=== PATIENT | female | born 1950 | race Two or more races ===

== ENCOUNTER 2019-06-06 22:40 | Emergency (ER) | payer MEDICARE ==
[~2019-06-06] VITALS: Ht 160 cm; Wt 90.7 kg
[~2019-06-06 22:40] MED LIST: ALBUAER3 IN; FAM20T PO; FURO40TA4 PO; LACT10SO3 PO; LEVO137T3 PO; RIFA550T PO; SPIR25TA88 PO; TRAM50TA2 PO
[2019-06-07] MEDS ORDERED: SODIUM CHLORIDE 0.9% 1,000 ML IV ONE (01:00)
[2019-06-07] MEDS ORDERED: ONDANSETRON HCL 4 MG/2 ML VIAL IV ONE (01:00)
[2019-06-07 01:10] LABS: Basophils # (auto) 0 uL; Basophils % (auto) 1.3 % (0.0-2.0); Eosinophils # (auto) 0 uL; Eosinophils % (auto) 1.6 % (0.0-7.0); Hematocrit 27.1 % (36.0-46.0); Hemoglobin 9.2 g/dL (12.2-16.2); Lymphocytes # (auto) 0.3 uL; Mean Corpuscular Hemoglobin 29.7 pg (28.0-32.0); Mean Corpuscular Hgb Conc. 33.9 g/dL (32.0-36.0); Mean Corpuscular Volume 87.7 fL (80.0-100.0); Monocytes # (auto) 0.2 uL; Monocytes % (auto) 6.6 % (0.0-12.0); Neutrophils # (auto) 2.5 uL; Neutrophils % (auto) 79.5 % (37.0-80.0); Platelet Count (auto) 67 10^3/uL (140-450); Red Blood Cells 3.09 10^6/uL (4.0-5.20); Red Cell Distribution Width 17.1 % (11.8-14.3); White Blood Cell 3.1 10^3/uL (4.4-10.8)
[2019-06-07 01:26] LABS: Albumin 2.6 g/dL (3.4-5.0); BUN/Creatinine Ratio 12.3; Calcium 7.7 mg/dL (8.5-10.1); Potassium 3.4 mmol/L (3.5-5.1)
[2019-06-07 01:31] LABS: Bilirubin, Total 0.9 mg/dL (0.2-1.0); Total Protein 7.4 g/dL (6.4-8.2)
[2019-06-07] MEDS ORDERED: ALBUTEROL SULF 2.5 MG/0.5ML(0.5%) NEB SOLN NEB ONE ×2 (02:15→06:45)
[2019-06-07] MEDS ORDERED: IPRATROPIUM BROM 0.5 MG/2.5ML INH SOL NEB ONE ×2 (02:15→06:45)
[2019-06-07 03:09] LABS: INR 1.14 (0.9-1.15); Partial Thromboplastin Time 28.3 sec (23.64-32.05)
[2019-06-07 07:00] VITALS: BP 118/63
[2019-06-07] MEDS ORDERED: IPRATROPIUM BROM 0.5 MG/2.5ML INH SOL ONE (07:01)
[2019-06-07] MEDS ORDERED: ALBUTEROL SULF 2.5 MG/0.5ML(0.5%) NEB SOLN ONE (07:01)
== END 2019-06-07 07:34 | disposition home or self-care (01) ==
LOC: EDUNIT# 22:40 → EDBD 22:40 → ER 22:40
DX: J45.909 Unspecified asthma, uncomplicated (principal); J01.00 Acute maxillary sinusitis, unspecified; I12.9 Hypertensive chronic kidney disease with stage 1 through stage 4 chronic kidney disease, or unspecified chronic kidney disease; N18.9 Chronic kidney disease, unspecified; Z90.710 Acquired absence of both cervix and uterus; Z88.0 Allergy status to penicillin; Z79.899 Other long term (current) drug therapy
CPT/HCPCS: 36415; 71250; 74176; 80053; 82150; 83605; 83690; 83880; 84484; 85025; 85610; 85730; 94640; 96374; 99284; J2405; J7030; J7611; J7644

== ENCOUNTER → 2019-06-09 | Outpatient (CLI) | payer MEDICARE ==
--- NOTE | 2019-06-09 15:36 | NUR ---
PT IN ULTRASOUND FOR A PARACENTESIS BY DR LEONARD. VS 127/75-88-16-97%. 1552: 128/71-77-18-98%. 1600: FINISHED WITH PROCEDURE. 2800 ML OF ASCITES FLUID REMOVED. PT TOLERATED PROCEDURE WELL.
== END | disposition home or self-care (01) ==
LOC: XYW 15:21
PROVIDERS: ATTEND Internal Medicine
DX: R18.8 Other ascites (principal); K74.69 Other cirrhosis of liver; K75.81 Nonalcoholic steatohepatitis (NASH); E03.9 Hypothyroidism, unspecified; G20 Parkinson's disease; Z88.5 Allergy status to narcotic agent; Z88.1 Allergy status to other antibiotic agents; Z88.0 Allergy status to penicillin; Z88.2 Allergy status to sulfonamides; Z79.899 Other long term (current) drug therapy; Z98.51 Tubal ligation status; Z90.710 Acquired absence of both cervix and uterus; Z98.890 Other specified postprocedural states
CPT/HCPCS: 36415; 49083; 80053; 82105; 84439; 84443; 85025; 85610; 85730; 86704; 86706; 86708; 86803; 87340; C1729; 10022; 76942

== ENCOUNTER → 2019-06-09 | Outpatient (CLI) | payer MEDICARE ==
[2019-06-09 12:12] LABS: Basophils # (auto) 0 uL; Basophils % (auto) 1.3 % (0.0-2.0); Eosinophils # (auto) 0.1 uL; Eosinophils % (auto) 4.4 % (0.0-7.0); Hematocrit 27.9 % (36.0-46.0); Hemoglobin 9.4 g/dL (12.2-16.2); Lymphocytes # (auto) 0.6 uL; Lymphocytes % (auto) 21.7 % (10.0-50.0); Mean Corpuscular Hemoglobin 29.6 pg (28.0-32.0); Mean Corpuscular Hgb Conc. 33.8 g/dL (32.0-36.0); Mean Corpuscular Volume 87.6 fL (80.0-100.0); Monocytes # (auto) 0.2 uL; Monocytes % (auto) 6.6 % (0.0-12.0); Neutrophils # (auto) 1.8 uL; Nucleated Red Blood Cells % 0.1 %; Platelet Count (auto) 66 10^3/uL (140-450); Red Blood Cells 3.18 10^6/uL (4.0-5.20); Red Cell Distribution Width 17.4 % (11.8-14.3); White Blood Cell 2.7 10^3/uL (4.4-10.8)
[2019-06-09 12:26] LABS: INR 1.14 (0.9-1.15); Partial Thromboplastin Time 28.6 sec (23.64-32.05)
[2019-06-09 13:36] LABS: Potassium 3.5 mmol/L (3.5-5.1)
[2019-06-09 13:44] LABS: Albumin 2.8 g/dL (3.4-5.0); BUN/Creatinine Ratio 9.6; Bilirubin, Total 0.8 mg/dL (0.2-1.0); Calcium 7.7 mg/dL (8.5-10.1); Total Protein 7.4 g/dL (6.4-8.2)
[2019-06-11 09:35] LABS: Hepatitis B Surface Antibody Negative
[2019-06-11 10:09] LABS: Hepatitis A Total Antibody Positive
[2019-06-11 11:08] LABS: Hepatitis B Core Total AB Negative; Hepatitis B Surface Antigen Negative (Negative); Hepatitis C Antibody Negative (Negative)
== END | disposition home or self-care (01) ==
LOC: LAB 11:25
PROVIDERS: ATTEND Internal Medicine
DX: K75.81 Nonalcoholic steatohepatitis (NASH) (principal); E03.9 Hypothyroidism, unspecified; J40 Bronchitis, not specified as acute or chronic
CPT/HCPCS: 36415; 80053; 82105; 84439; 84443; 85025; 85610; 85730; 86704; 86706; 86708; 86803; 87340

== ENCOUNTER 2019-06-19 20:00 | Emergency (ER) | payer MEDICARE ==
[~2019-06-19] VITALS: Ht 149.9 cm; Wt 81.2 kg
[2019-06-20 09:57] VITALS: BP 106/59
== END 2019-06-20 10:26 | disposition home or self-care (01) ==
LOC: ER 20:00
DX: K74.60 Unspecified cirrhosis of liver (principal); I12.9 Hypertensive chronic kidney disease with stage 1 through stage 4 chronic kidney disease, or unspecified chronic kidney disease; I50.9 Heart failure, unspecified; N18.9 Chronic kidney disease, unspecified; J44.9 Chronic obstructive pulmonary disease, unspecified; I48.91 Unspecified atrial fibrillation; Z90.710 Acquired absence of both cervix and uterus; Z88.0 Allergy status to penicillin; Z88.1 Allergy status to other antibiotic agents; Z88.6 Allergy status to analgesic agent

== ENCOUNTER 2019-09-06 11:43 | Emergency (ER) | payer MEDICARE ==
[~2019-09-06] VITALS: Ht 154.9 cm; Wt 71.7 kg
[~2019-09-06 11:43] MED LIST changes: +SPIR25TA8 PO; -SPIR25TA88 PO; -TRAM50TA2 PO
[2019-09-06 14:22] VITALS: BP 150/82
[2019-09-06] MEDS ORDERED: traMADol HCL 50 MG TAB PO ONE (14:30)
== END 2019-09-06 16:09 | disposition home or self-care (01) ==
LOC: ER 11:43 → EDBD 11:43 → ER 16:09
DX: S93.402A Sprain of unspecified ligament of left ankle, initial encounter (principal); I48.91 Unspecified atrial fibrillation; J45.909 Unspecified asthma, uncomplicated; I13.0 Hypertensive heart and chronic kidney disease with heart failure and stage 1 through stage 4 chronic kidney disease, or unspecified chronic kidney disease; N18.9 Chronic kidney disease, unspecified; I50.9 Heart failure, unspecified; E07.9 Disorder of thyroid, unspecified; J44.9 Chronic obstructive pulmonary disease, unspecified; Z88.5 Allergy status to narcotic agent; Z88.0 Allergy status to penicillin; Z88.1 Allergy status to other antibiotic agents; Z88.2 Allergy status to sulfonamides; Z79.899 Other long term (current) drug therapy; X58.XXXA Exposure to other specified factors, initial encounter; Y93.89 Activity, other specified; Y92.89 Other specified places as the place of occurrence of the external cause; Y99.8 Other external cause status
CPT/HCPCS: 73610; 73630

== ENCOUNTER 2019-11-12 16:54 | Inpatient (IN) | payer MEDICARE ==
[~2019-11-12] VITALS: Ht 157.5 cm; Wt 78.8 kg
[~2019-11-12 16:54] MED LIST changes: -FAM20T PO; +FAMO20TA10 PO
[2019-11-12 18:19] LABS: Basophils # (auto) 0 10 ^3/uL (0-0.2); Basophils % (auto) 1.3 % (0.0-2.0); Eosinophils # (auto) 0.2 10 ^3/uL (0-0.8); Eosinophils % (auto) 6.1 % (0.0-7.0); Hematocrit 34.1 % (36.0-46.0); Hemoglobin 11.5 g/dL (12.2-16.2); Lymphocytes # (auto) 0.7 10 ^3/uL (0.4-5.4); Lymphocytes % (auto) 19.7 % (10.0-50.0); Mean Corpuscular Hemoglobin 30.5 pg (28.0-32.0); Mean Corpuscular Hgb Conc. 33.7 g/dL (32.0-36.0); Mean Corpuscular Volume 90.5 fL (80.0-100.0); Monocytes # (auto) 0.2 10 ^3/uL (0-1.3); Monocytes % (auto) 6.1 % (0.0-12.0); Neutrophils # (auto) 2.4 10 ^3/uL (1.6-8.6); Neutrophils % (auto) 66.8 % (37.0-80.0); Nucleated Red Blood Cells % 0.1 %; Platelet Count (auto) 69 10^3/uL (140-450); Red Blood Cells 3.76 10^6/uL (4.0-5.20); Red Cell Distribution Width 16.1 % (11.8-14.3); White Blood Cell 3.6 10^3/uL (4.4-10.8)
[2019-11-12 18:28] LABS: Albumin 3.1 g/dL (3.4-5.0); Potassium 3.1 mmol/L (3.5-5.1)
[2019-11-12 18:30] LABS: BUN/Creatinine Ratio 13.9
[2019-11-12 18:35] LABS: Bilirubin, Total 0.8 mg/dL (0.2-1.0); Total Protein 7.5 g/dL (6.4-8.2)
[2019-11-12 19:42] LABS: Urine Bacteria NONE SEEN /hpf (None Seen); Urine Blood Negative /uL (Negative); Urine Mucus FEW (None Seen); Urine Specific Gravity 1.027 (1.001-1.035); Urine WBC 2 /hpf (0 - 5)
[2019-11-12 20:01] LABS: INR 1.09 (0.9-1.15); Partial Thromboplastin Time 27.4 sec (23.64-32.05)
[2019-11-12] MEDS ORDERED: POTASSIUM EFFERVESENT TAB 25 MEQ GT ONE (20:45)
[2019-11-12] MEDS ORDERED: NITROGLYCERIN 0.4 MG SL TAB SL PRN (23:00)
[2019-11-12] MEDS ORDERED: TEMAZEPAM 15 MG CAP PO PRN (23:00)
[2019-11-12] MEDS ORDERED: ONDANSETRON HCL 4 MG/2 ML VIAL IV PRN (23:00)
[2019-11-12] MEDS ORDERED: MORPHINE SULF INJ 2 MG/ML SYRINGE 1ML IV PRN (23:00)
[2019-11-12 23:32] LABS: CRP High Sensitivity 0.2 mg/dL (< 0.3); Magnesium 2.2 mg/dL (1.6-2.6)
--- NOTE | 2019-11-13 00:29 | NUR ---
[facility] unit SBAR not received. Patient oriented to ROXANNA DE LA CRUZ, RN primary RN, unit, room, bed, and unit policies regarding patient care and visiting hours. Patient now on continuous telemetry monitoring,tele box #11. Patient weighed by bedscale and encouraged to call if they need something. Safety measures in place bed in lowest position, side rails up x2, and call light within reach. All questions and concerns addressed, patient verbalized understanding.
[2019-11-13] MEDS ORDERED: FUROSEMIDE 40 MG/4 ML VIAL IV ONE (01:15)
[2019-11-13] MEDS ORDERED: LEVOTHYROXINE SODIUM 50 MCG TAB PO ONE (01:15)
[2019-11-13 01:53] VITALS: BP 139/83
--- NOTE | 2019-11-13 03:57 | NUR ---
Paging hospitalist. Patient complaining pain 9/10 to right side of ribs and abdomen. Patient allergic to codeine, and morphine. Patient requesting tramadol. Awaiting orders. Will continue to monitor every hour and as needed.
[2019-11-13 05:00] VITALS: BP 106/53
[2019-11-13] MEDS ORDERED: FUROSEMIDE 20 MG/2 ML VIAL IV SCH (06:00)
[2019-11-13 06:21] LABS: Basophils # (auto) 0 10 ^3/uL (0-0.2); Eosinophils # (auto) 0.2 10 ^3/uL (0-0.8); Hemoglobin 9.7 g/dL (12.2-16.2); Lymphocytes # (auto) 0.6 10 ^3/uL (0.4-5.4); Monocytes # (auto) 0.2 10 ^3/uL (0-1.3); Neutrophils # (auto) 1.9 10 ^3/uL (1.6-8.6); White Blood Cell 2.9 10^3/uL (4.4-10.8)
[2019-11-13 06:23] LABS: Basophils % (auto) 1.4 % (0.0-2.0); Eosinophils % (auto) 6.3 % (0.0-7.0); Hematocrit 27.6 % (36.0-46.0); Lymphocytes % (auto) 19.7 % (10.0-50.0); Mean Corpuscular Hemoglobin 31.6 pg (28.0-32.0); Mean Corpuscular Hgb Conc. 35.4 g/dL (32.0-36.0); Mean Corpuscular Volume 89.3 fL (80.0-100.0); Monocytes % (auto) 7.6 % (0.0-12.0); Nucleated Red Blood Cells % 0.1 %; Platelet Count (auto) 55 10^3/uL (140-450); Red Blood Cells 3.09 10^6/uL (4.0-5.20); Red Cell Distribution Width 15.7 % (11.8-14.3)
[2019-11-13] MEDS: traMADol HCL 50 MG TAB PO PRN ×2 (06:23→15:57)
[2019-11-13 06:37] LABS: Albumin 2.5 g/dL (3.4-5.0); BUN/Creatinine Ratio 14.1; Calcium 7.4 mg/dL (8.5-10.1)
[2019-11-13 06:39] LABS: Bilirubin, Total 0.7 mg/dL (0.2-1.0); Total Protein 6.2 g/dL (6.4-8.2)
[2019-11-13 06:45] LABS: Potassium 2.9 mmol/L (3.5-5.1)
[2019-11-13] MEDS ORDERED: LEVOTHYROXINE SODIUM 112 MCG TAB PO SCH (07:00)
[2019-11-13] MEDS ORDERED: LEVOTHYROXINE SODIUM 25 MCG TAB PO SCH (07:00)
--- NOTE | 2019-11-13 07:29 | NUR ---
Patient has critical K+ 2.9, paging hospitalist to notify.
[2019-11-13] MEDS ORDERED: POTASSIUM CHL 20 Meq TABLET PO ONE (07:45)
--- NOTE | 2019-11-13 07:45 | NUR ---
Opening Shift Note Assumed care of patient, awake, alert, and oriented. No S/S of distress/SOB or pain. Bed in lowest/locked position, bed rails up x2, call light within reach. Instructed on POC and to call for assist PRN. Will continue to monitor for changes Q1hr and PRN.
--- NOTE | 2019-11-13 07:46 | NUR ---
Respiratory note: PT AWAKE, AND ALERT. NO RESPIRATORY DISTRESS NOTED. SPO2 98% ON RA, HR 67, RR 18, BS I&E WHEEZES BILATERALLY. DUE TO PT RESPIRATORY ASSESSMENT, WELL EXTENSIVE HISTORY OF ASTHMA, COPD, AND PRN MEDNEB TX TAKEN AT HOME OF ALBUTEROL, WILL RECOMMEND TO DR THAT PT ORDERED ALBUTEROL (180MCG) MDI TID. RN MADE AWARE. WILL CONTINUE TO MONITOR PT.
[2019-11-13 08:45] VITALS: BP 128/52
[2019-11-13] MEDS ORDERED: ASPirin 81 mg TAB PO SCH (10:00)
[2019-11-13] MEDS ORDERED: ASCORBIC ACID 1,000 MG TAB PO SCH (10:00)
[2019-11-13] MEDS: LACTULOSE 20Gm/30ML SOLN PO SCH (10:00)
[2019-11-13] MEDS ORDERED: ZINC SULFATE 220mg CAP or TAB PO SCH (10:00)
[2019-11-13] MEDS ORDERED: FUROSEMIDE 40 MG TAB PO SCH (10:00)
[2019-11-13] MEDS ORDERED: SPIRONOLACTONE 25 MG TAB PO SCH (10:00)
[2019-11-13] MEDS ORDERED: ENOXAPARIN SOD 40 MG/0.4 ML SYRINGE SC SCH (10:00)
[2019-11-13] MEDS: FAMOTIDINE 20 MG TAB PO SCH (10:24)
[2019-11-13] MEDS: CHOLECALCIFEROL (VITD3) 1,000UNIT=25mCg TAB PO SCH (10:25)
[2019-11-13] MEDS: rifAXIMin 550 MG TAB PO SCH ×2 (10:53→21:30)
[2019-11-13] MEDS: POTASSIUM CHL 20 Meq TABLET PO SCH ×2 (11:45→14:20)
[2019-11-13] MEDS ORDERED: IOHEXOL 350 MG/ML 100ML IJ ONE (14:10)
[2019-11-13] MEDS: ALBUTEROL SULF HFA 90MCG INH 200DOSE IN SCH ×2 (14:21→21:32)
--- NOTE | 2019-11-13 15:10 | NUR ---
REPORT REPORT GIVEN TO MAGDALENE JUAN. PATIENT BEING TRANSFERRED TO ROOM 246B
--- NOTE | 2019-11-13 15:10 | NUR ---
TRANSFER PATIENT TRANSFERRED FROM 240B TO 246B. NO S/S OF DISTRESS, SOB OR PAIN NOTED AT DEPARTURE
--- NOTE | 2019-11-13 15:15 | NUR ---
RECEIVED PT TRANSFER FROM ROOM 240B VIA WHEELCHAIR, PT IS AWAKE AND ALERT, NO SIGNS OF DISTRESS AT THIS TIME, WILL CONTINUE TO MONITOR.
--- NOTE | 2019-11-13 15:25 | NUR ---
PT SEEN BY DR. CRAVEN.
--- NOTE | 2019-11-13 15:36 | NUR ---
PT IS OFF UNIT FOR CT ANGIOGRAM.
[2019-11-13 16:56] VITALS: BP 118/69
--- NOTE | 2019-11-13 17:33 | NUR ---
SPOKE WITH TORIBIO IN ULTRASOUND, SHE SAID THERE IS NOT ENOUGH FLUID TO DRAIN FOR PARACENTESIS.
[2019-11-13] MEDS ORDERED: FUROSEMIDE 40 MG/4 ML VIAL IV SCH (18:00)
--- NOTE | 2019-11-13 18:53 | NUR ---
RT NOTE PT WAS SEEN BY RT FOR PRN HHN TX. PT TOLERATES WELL VIA MASK. NO ADVERSE REACTION NOTED .CONT ORDERED Addendum: 11/13/19 at 1932 by Camilla Robledo RT Amended: Links added.
[2019-11-13] MEDS: IPRATROPIUM BROM 0.5 MG/2.5ML INH SOL NEB PRN (19:08)
[2019-11-13] MEDS: ALBUTEROL SULF 2.5 MG/0.5ML(0.5%) NEB SOLN NEB PRN (19:09)
--- NOTE | 2019-11-13 19:30 | NUR ---
Opening Shift Note Assumed care of patient, awake and alert. No S/S of distress/SOB or pain. Instructed on POC and to call for assist PRN, will continue to monitor for changes Q1hr and PRN. bed in low position and call light within reach. fall precautions in place. informed patient to call for assistance when getting up patient verbalized understanding. bed alarm on
[2019-11-13 19:50] VITALS: BP 118/69
[2019-11-13 22:00] VITALS: BP 117/84
--- NOTE | 2019-11-13 22:10 | NUR ---
RT NOTE RT TO SEE PATIENT FOR MDI ADMINISTRATION. RN KATJA ALREADY SAW THE PATIENT AND CLEARED THE EMAR. PT TOLERATES TX WELL. CONT ORDERED
[2019-11-14] MEDS: traMADol HCL 50 MG TAB PO PRN ×3 (00:06→22:08)
--- NOTE | 2019-11-14 00:06 | NUR ---
pain 6/10 to abd aching for 2days. patient medicated.
--- NOTE | 2019-11-14 00:46 | NUR ---
patient requesting breathing treatment oxygen saturation 96% via room air. heart rate 57, rr 17 bilateral chest rise and fall. RT paged for breathing treatment.
--- NOTE | 2019-11-14 00:57 | NUR ---
RT NOTE PT WAS SEEN BY RT FOR HHN TX. PT TOLERATES WELL VIA MASK. NO ADVERSE REACTION NOTED. CONT ORDERED Addendum: 11/14/19 at 0110 by Camilla Robledo RT Amended: Links added.
--- NOTE | 2019-11-14 01:06 | NUR ---
pain 0/10
[2019-11-14] MEDS: IPRATROPIUM BROM 0.5 MG/2.5ML INH SOL NEB PRN (01:07)
[2019-11-14] MEDS: ALBUTEROL SULF 2.5 MG/0.5ML(0.5%) NEB SOLN NEB PRN (01:07)
[2019-11-14 04:57] VITALS: BP 104/64
[2019-11-14] MEDS: LEVOTHYROXINE SODIUM 100 MCG TAB PO SCH (05:49)
[2019-11-14] MEDS: LEVOTHYROXINE SODIUM 50 MCG TAB PO SCH (05:49)
[2019-11-14] MEDS: ALBUTEROL SULF HFA 90MCG INH 200DOSE IN SCH ×3 (05:50→22:11)
[2019-11-14 06:15] LABS: INR 1.14 (0.9-1.15)
--- NOTE | 2019-11-14 06:30 | NUR ---
Respiratory note: PT SEEM FOR MDI ADMINISTRATION, WAS ADMINISTER AT 05:55 PER RN CHARTING. PT STATES SHE SELF ADMINISTERED. SPO2 97% ON RA HR 72 RR 16 BREATH SOUNDS ARE CLEAR/DIMINISHED T/O. PT AND RN AWARE TO HAVE RT PAGED IF NEEDED.
--- NOTE | 2019-11-14 06:34 | NUR ---
patient rounds patient is in bed watching tv denies sob distress or pain. Iv is patent/asymptomatic. call light within reach bed in low position, and fall precautions in place. patient informed to call for assistance. patient verbalized understanding.
--- NOTE | 2019-11-14 07:15 | NUR ---
report given to dayshift rn. patient denies sob distress or pain
[2019-11-14 08:00] VITALS: BP 99/67
[2019-11-14] MEDS: LACTULOSE 20Gm/30ML SOLN PO SCH (09:48)
[2019-11-14] MEDS: FUROSEMIDE 40 MG/4 ML VIAL IV SCH (09:48)
[2019-11-14] MEDS: FAMOTIDINE 20 MG TAB PO SCH (09:49)
[2019-11-14] MEDS: SPIRONOLACTONE 25 MG TAB PO SCH (09:49)
[2019-11-14] MEDS: rifAXIMin 550 MG TAB PO SCH ×2 (09:49→22:08)
[2019-11-14] MEDS: CHOLECALCIFEROL (VITD3) 1,000UNIT=25mCg TAB PO SCH (09:49)
--- NOTE | 2019-11-14 10:23 | NUR ---
DR CRAVEN ON UNIT REGARDING PATIENT
[2019-11-14 12:00] VITALS: BP 153/61
[2019-11-14] MEDS: LIDOCAINE 5% TOPICAL PATCH TOP SCH (12:08)
--- NOTE | 2019-11-14 12:20 | NUR ---
DR Reny LAMAS BEDSIDE WITH PATIENT DISCUSSING PLAN OF CARE
--- NOTE | 2019-11-14 14:21 | NUR ---
Respiratory note: RT AT BEDSIDE FOR PT SELF ADMINISTRATION OF 180MCG ALBUTEROL INHALER. NO ADVERSE REACTION NOTED. HR 62 RR 16 SPO2 96% ON RA BREATH SOUNDS ARE FAINT EXPIRATORY WHEEZES. PT AND RN AWARE TO HAVE RT PAGED IFF NEEDED.
[2019-11-14 16:50] VITALS: BP 94/66
--- NOTE | 2019-11-14 19:25 | NUR ---
Opening Shift Note Assumed care of patient, awake and alert. No S/S of distress/SOB or pain. Bed in lowest locked position, side rails up x2, call light within reach, bed alarm on. Patient aware to call for assistance before ambulating, patient verbalized understanding. Instructed on POC and to call for assist PRN, will continue to monitor for changes Q1hr and PRN.
[2019-11-14 22:00] VITALS: BP 104/53
--- NOTE | 2019-11-15 00:08 | NUR ---
Ordered Lidocaine patch removed from below right breast as per MD Yun's orders. Patient tolerated well. Will continue to monitor.
[2019-11-15 05:45] VITALS: BP 93/48
--- NOTE | 2019-11-15 06:42 | NUR ---
Patient lying in bed, awake and alert. No s/s of distress. Call light within reach. Will endorse care to dayshift RN.
[2019-11-15] MEDS: LEVOTHYROXINE SODIUM 50 MCG TAB PO SCH (06:58)
[2019-11-15] MEDS: LEVOTHYROXINE SODIUM 100 MCG TAB PO SCH (06:58)
[2019-11-15] MEDS: traMADol HCL 50 MG TAB PO PRN (06:59)
[2019-11-15] MEDS: ALBUTEROL SULF HFA 90MCG INH 200DOSE IN SCH ×3 (07:00→21:40)
--- NOTE | 2019-11-15 07:00 | NUR ---
Respiratory note: MDI GIVEN BY RT.HR 66, RR 14, SPO2 95% ON RA, BS CLEAR. NO SIGNS OR SYMPTOMS OF RESPIRATORY DISTRESS NOTED. NO SIGNS OR SYMPTOMS OF RESPIRATORY DISTRESS NOTED AT THIS TIME.
[2019-11-15 08:00] VITALS: BP 102/57
--- NOTE | 2019-11-15 08:25 | NUR ---
DR Reny LAMAS BEDSIDE WITH PATIENT DISCUSSING PLAN OF CARE
[2019-11-15 08:53] VITALS: BP 102/57
[2019-11-15] MEDS: CHOLECALCIFEROL (VITD3) 1,000UNIT=25mCg TAB PO SCH (10:03)
[2019-11-15] MEDS: FAMOTIDINE 20 MG TAB PO SCH (10:03)
[2019-11-15] MEDS: FUROSEMIDE 40 MG/4 ML VIAL IV SCH (10:03)
[2019-11-15] MEDS: LIDOCAINE 5% TOPICAL PATCH TOP SCH (10:03)
[2019-11-15] MEDS: SPIRONOLACTONE 25 MG TAB PO SCH (10:03)
[2019-11-15] MEDS: LACTULOSE 20Gm/30ML SOLN PO SCH (10:03)
[2019-11-15] MEDS: rifAXIMin 550 MG TAB PO SCH ×2 (10:03→23:12)
[2019-11-15 13:00] VITALS: BP 101/58
--- NOTE | 2019-11-15 14:22 | NUR ---
Respiratory note: MDI GIVEN BY RT.HR 70, RR 14, SPO2 97% ON RA, BS CLEAR. NO SIGNS OR SYMPTOMS OF RESPIRATORY DISTRESS NOTED. NO SIGNS OR SYMPTOMS OF RESPIRATORY DISTRESS NOTED AT THIS TIME.
[2019-11-15 17:00] VITALS: BP 150/70
[2019-11-15] MEDS: IPRATROPIUM BROM 0.5 MG/2.5ML INH SOL NEB PRN (21:42)
[2019-11-15] MEDS: ALBUTEROL SULF 2.5 MG/0.5ML(0.5%) NEB SOLN NEB PRN (21:42)
--- NOTE | 2019-11-15 21:51 | NUR ---
Respiratory note: PT REQUESTED AEROSOL MED NEB TX INSTEAD OF MDI. PT STATES MDI IS NOT HELPING ANYMORE. MED NEB TX GIVEN VIA MASK, TOLERATED WELL.
[2019-11-15 22:00] VITALS: BP 131/70
--- NOTE | 2019-11-15 22:03 | NUR ---
Ordered Lidocaine patch removed from below right breast as per MD Yun's orders. Patient tolerated well. Will continue to monitor.
[2019-11-16] MEDS: traMADol HCL 50 MG TAB PO PRN ×2 (01:36→22:35)
[2019-11-16 05:50] VITALS: BP 108/64
[2019-11-16 06:00] LABS: Basophils # (auto) 0 10 ^3/uL (0-0.2); Eosinophils # (auto) 0.1 10 ^3/uL (0-0.8); Hemoglobin 9.5 g/dL (12.2-16.2); Lymphocytes # (auto) 0.5 10 ^3/uL (0.4-5.4); Nucleated Red Blood Cells % 0.1 %; White Blood Cell 2.4 10^3/uL (4.4-10.8)
[2019-11-16 06:03] LABS: Basophils % (auto) 1.5 % (0.0-2.0); Eosinophils % (auto) 4.6 % (0.0-7.0); Hematocrit 27.2 % (36.0-46.0); Lymphocytes % (auto) 20.3 % (10.0-50.0); Mean Corpuscular Hemoglobin 31.2 pg (28.0-32.0); Mean Corpuscular Volume 89.3 fL (80.0-100.0); Monocytes # (auto) 0.2 10 ^3/uL (0-1.3); Monocytes % (auto) 6.2 % (0.0-12.0); Neutrophils # (auto) 1.7 10 ^3/uL (1.6-8.6); Neutrophils % (auto) 67.4 % (37.0-80.0); Platelet Count (auto) 54 10^3/uL (140-450); Red Blood Cells 3.05 10^6/uL (4.0-5.20); Red Cell Distribution Width 15.4 % (11.8-14.3)
[2019-11-16 06:21] LABS: Albumin 2.7 g/dL (3.4-5.0); Calcium 7.9 mg/dL (8.5-10.1); Potassium 3.6 mmol/L (3.5-5.1)
[2019-11-16 06:24] LABS: BUN/Creatinine Ratio 15.8; Bilirubin, Total 0.8 mg/dL (0.2-1.0); Total Protein 6.2 g/dL (6.4-8.2)
[2019-11-16] MEDS: LEVOTHYROXINE SODIUM 50 MCG TAB PO SCH (06:49)
[2019-11-16] MEDS: LEVOTHYROXINE SODIUM 100 MCG TAB PO SCH (06:49)
[2019-11-16] MEDS: ALBUTEROL SULF HFA 90MCG INH 200DOSE IN SCH ×3 (07:00→23:16)
--- NOTE | 2019-11-16 07:00 | NUR ---
Patient lying in bed, eyes closed, respirations even and unlabored, appears asleep. No s/s of distress. Call light within reach. Will endorse care to dayshift RN.
[2019-11-16 08:45] VITALS: BP 98/57
[2019-11-16] MEDS: SPIRONOLACTONE 25 MG TAB PO SCH (10:08)
[2019-11-16] MEDS: LIDOCAINE 5% TOPICAL PATCH TOP SCH (10:08)
[2019-11-16] MEDS: FUROSEMIDE 40 MG/4 ML VIAL IV SCH (10:08)
[2019-11-16] MEDS: rifAXIMin 550 MG TAB PO SCH ×2 (10:08→21:44)
[2019-11-16] MEDS: FAMOTIDINE 20 MG TAB PO SCH (10:08)
[2019-11-16] MEDS: LACTULOSE 20Gm/30ML SOLN PO SCH (10:08)
[2019-11-16] MEDS: CHOLECALCIFEROL (VITD3) 1,000UNIT=25mCg TAB PO SCH (10:08)
[2019-11-16 13:00] VITALS: BP 152/98
--- NOTE | 2019-11-16 14:22 | NUR ---
Nutrition Assessment Notes Please refer to link for full assessment notes. Est Energy needs: 0988-4913 kcals (17-20 kcal/kgBW) Est Protein needs: 47-59 gms/day (0.6-0.75 gm/kgBW) d/t Stg 3 CKF Will continue to monitor and reassess prn Addendum: 11/16/19 at [address] Amended: Links added.
[2019-11-16 17:00] VITALS: BP 109/64
--- NOTE | 2019-11-16 19:30 | NUR ---
Opening Shift Note Assumed care of patient, awake and alert x4. No S/S of distress/SOB or pain. Instructed on POC and to call for assist PRN. Call light is within reach, side rails up x2, fall precautions are in place, will continue to monitor for changes Q1hr and PRN.
[2019-11-16 22:00] VITALS: BP 115/70
--- NOTE | 2019-11-16 22:08 | NUR ---
Lidocaine patch removed per MD orders.
--- NOTE | 2019-11-16 22:35 | NUR ---
Complaints of pain to the abdomen, 10/0-10, tramadol given as ordered, patient states she is allergic to all other kinds of pain medication, will reassess.
--- NOTE | 2019-11-16 22:35 | NUR ---
Paged RT for a breathing treatment
[2019-11-16] MEDS: ALBUTEROL SULF 2.5 MG/0.5ML(0.5%) NEB SOLN NEB PRN (23:16)
[2019-11-16] MEDS: IPRATROPIUM BROM 0.5 MG/2.5ML INH SOL NEB PRN (23:16)
--- NOTE | 2019-11-16 23:35 | NUR ---
Patient states pain is now a 4/0-10, it is okay and she is fine. Will continue to monitor.
[2019-11-17 00:03] VITALS: BP 115/70
[2019-11-17 05:58] VITALS: BP 110/67
[2019-11-17] MEDS: ALBUTEROL SULF HFA 90MCG INH 200DOSE IN SCH (06:28)
[2019-11-17] MEDS: LEVOTHYROXINE SODIUM 100 MCG TAB PO SCH (06:31)
[2019-11-17] MEDS: LEVOTHYROXINE SODIUM 50 MCG TAB PO SCH (06:31)
--- NOTE | 2019-11-17 06:50 | NUR ---
Closing note: Patient is resting in bed, no complaints of pain or SOB, call light is within reach.
--- NOTE | 2019-11-17 07:25 | NUR ---
Opening Shift Note Assumed care of patient, awake and alert and oriented x4. No S/S of distress/SOB or pain. Plan of care discussed. Bed in lowest locked position, side rails up x2, call light within reach, bed alarm on. Encouraged to call for assistance before ambulating, patient verbalized understanding. Will continue to monitor for changes Q1hr and PRN.
[2019-11-17 08:00] VITALS: BP 113/67
[2019-11-17] MEDS: LIDOCAINE 5% TOPICAL PATCH TOP SCH (10:00)
[2019-11-17] MEDS: CHOLECALCIFEROL (VITD3) 1,000UNIT=25mCg TAB PO SCH (10:00)
[2019-11-17] MEDS: FAMOTIDINE 20 MG TAB PO SCH (10:00)
[2019-11-17] MEDS: LACTULOSE 20Gm/30ML SOLN PO SCH (10:00)
[2019-11-17] MEDS: rifAXIMin 550 MG TAB PO SCH (11:42)
[2019-11-17] MEDS: SPIRONOLACTONE 25 MG TAB PO SCH (11:42)
[2019-11-17 12:00] VITALS: BP 113/66
--- NOTE | 2019-11-17 14:35 | NUR ---
Patient is off unit to visit with in ICU. approved visit.
[2019-11-17 15:21] VITALS: BP 98/57
[2019-11-17] MEDS: IPRATROPIUM BROM 0.5 MG/2.5ML INH SOL NEB PRN (15:30)
[2019-11-17] MEDS: ALBUTEROL SULF 2.5 MG/0.5ML(0.5%) NEB SOLN NEB PRN (15:30)
--- NOTE | 2019-11-17 15:40 | NUR ---
PATIENT OFF UNIT AGAIN TO VISIT IN ICU AFTER BRIEF RETURN TO ROOM
--- NOTE | 2019-11-17 17:40 | NUR ---
PATIENT DISCHARGED PER MD'S ORDER. ALL DISCHARGE SUMMARY AND FOLLOW UP INSTRUCTION PROVIDED. PATIENT ALERT AND ORIENTED AT TIME OF DISCHARGE, VERBALIZED UNDERSTANDING OF INSTRUCTIONS. IV DISCONTINUED AND TELE BOX RETURNED TO ICU.
[2019-11-18] MEDS ORDERED: FUROSEMIDE 20 MG TAB PO SCH (10:00)
== END 2019-11-17 17:40 | disposition home or self-care (01) | DRG 432 ==
LOC: ER 16:54 → TELE 16:55 → TELE-EAST 23:37
PROVIDERS: ADMIT Nurse Practitioner; ATTEND Internal Medicine
DX: K74.60 Unspecified cirrhosis of liver (principal); I21.A1 Myocardial infarction type 2; K72.00 Acute and subacute hepatic failure without coma; I13.0 Hypertensive heart and chronic kidney disease with heart failure and stage 1 through stage 4 chronic kidney disease, or unspecified chronic kidney disease; R18.8 Other ascites; E87.6 Hypokalemia; S20.211A Contusion of right front wall of thorax, initial encounter; N18.9 Chronic kidney disease, unspecified; E03.9 Hypothyroidism, unspecified; D64.9 Anemia, unspecified; D69.59 Other secondary thrombocytopenia; Z88.6 Allergy status to analgesic agent; Z88.0 Allergy status to penicillin; Z88.2 Allergy status to sulfonamides; X58.XXXA Exposure to other specified factors, initial encounter; Y93.89 Activity, other specified; Y92.89 Other specified places as the place of occurrence of the external cause; Y99.8 Other external cause status; Z20.828 Contact with and (suspected) exposure to other viral communicable diseases; I50.9 Heart failure, unspecified; K75.81 Nonalcoholic steatohepatitis (NASH)
CPT/HCPCS: 36415; 71045; 71275; 76700; 80053; 81001; 82010; 82140; 82728; 83605; 83615; 83735; 83880; 84132; 84443; 84484; 85025; 85379; 85610; 85730; 86141; 87070; 87804; 87880; 93005; 93306; 93971; 94640; G0378

== ENCOUNTER 2019-12-17 03:49 | Emergency (ER) | payer MEDICARE ==
[~2019-12-17] VITALS: Ht 149.9 cm; Wt 77.2 kg
[2019-12-17 08:52] LABS: Salicylate < 1.7 mg/dL (2.8-20.0)
[2019-12-17 08:53] LABS: Acetaminophen < 2.0 ug/mL (10-30)
[2019-12-19 14:42] LABS: Basophils # (auto) 0 10 ^3/uL (0-0.2); Eosinophils # (auto) 0.1 10 ^3/uL (0-0.8); Hemoglobin 10.3 g/dL (12.2-16.2); Lymphocytes # (auto) 0.4 10 ^3/uL (0.4-5.4); Mean Corpuscular Volume 91.1 fL (80.0-100.0); Monocytes # (auto) 0.1 10 ^3/uL (0-1.3); Neutrophils # (auto) 1.6 10 ^3/uL (1.6-8.6); Red Cell Distribution Width 15.2 % (11.8-14.3); White Blood Cell 2.2 10^3/uL (4.4-10.8)
[2019-12-19 14:43] LABS: Basophils % (auto) 1.3 % (0.0-2.0); Eosinophils % (auto) 4.3 % (0.0-7.0); Hematocrit 30.2 % (36.0-46.0); Lymphocytes % (auto) 16.8 % (10.0-50.0); Monocytes % (auto) 4.3 % (0.0-12.0); Neutrophils % (auto) 73.3 % (37.0-80.0); Nucleated Red Blood Cells % 0.2 %; Platelet Count (auto) 48 10^3/uL (140-450); Red Blood Cells 3.31 10^6/uL (4.0-5.20)
[2019-12-19 14:58] LABS: Albumin 2.7 g/dL (3.4-5.0); Magnesium 2.3 mg/dL (1.6-2.6); Potassium 4.3 mmol/L (3.5-5.1)
[2019-12-19 15:00] LABS: BUN/Creatinine Ratio 12.5
[2019-12-19 15:03] LABS: Bilirubin, Total 0.9 mg/dL (0.2-1.0); Total Protein 6.7 g/dL (6.4-8.2)
[2019-12-19 17:40] LABS: Urine Bacteria FEW /hpf (None Seen); Urine Blood Negative /uL (Negative); Urine Mucus FEW (None Seen); Urine Specific Gravity 1.028 (1.001-1.035); Urine WBC 18 /hpf (0 - 5)
[2019-12-19 17:49] LABS: INR 1.24 (0.9-1.15); Partial Thromboplastin Time 28.7 sec (23.64-32.05)
[2019-12-19 17:51] LABS: Alcohol, Urine < 3.0 mg/dL (0-10); Amphetamine Screen, Urine NEGATIVE (NEGATIVE); Barbiturate Scree,Urine NEGATIVE (NEGATIVE); Benzodiazephine Screen, Urine NEGATIVE (NEGATIVE); Cannabinoid Screen, Urine NEGATIVE (NEGATIVE); Cocaine Screen, Urine NEGATIVE (NEGATIVE); Opiate Scree,Urine NEGATIVE (NEGATIVE); Phencyclidine Screen, Urine NEGATIVE (NEGATIVE)
[2019-12-20] MEDS ORDERED: traMADol HCL 50 MG TAB PO ONE ×2 (14:00→14:45)
[2019-12-21 14:08] VITALS: BP 124/57
== END 2019-12-21 15:20 | disposition home or self-care (01) ==
LOC: ER 03:52
DX: F32.9 Major depressive disorder, single episode, unspecified (principal); F41.9 Anxiety disorder, unspecified; R45.851 Suicidal ideations; I48.91 Unspecified atrial fibrillation; M19.90 Unspecified osteoarthritis, unspecified site; J44.9 Chronic obstructive pulmonary disease, unspecified; E07.9 Disorder of thyroid, unspecified; I13.0 Hypertensive heart and chronic kidney disease with heart failure and stage 1 through stage 4 chronic kidney disease, or unspecified chronic kidney disease; N18.9 Chronic kidney disease, unspecified; I50.9 Heart failure, unspecified; Z20.828 Contact with and (suspected) exposure to other viral communicable diseases
CPT/HCPCS: 36415; 74176; 76700; 76942; 80053; 80307; 80320; 80329; 81001; 83690; 83735; 85025; 85610; 85730; 99285; C1729; C9803; U0003; 10022

== ENCOUNTER → 2020-01-13 | Outpatient (CLI) | payer MEDICARE ==
[2020-01-13 12:17] LABS: Basophils # (auto) 0 10 ^3/uL (0-0.2); Eosinophils # (auto) 0.2 10 ^3/uL (0-0.8); Eosinophils % (auto) 5.3 % (0.0-7.0); Hemoglobin 11.4 g/dL (12.2-16.2); Mean Corpuscular Volume 91.2 fL (80.0-100.0); Monocytes # (auto) 0.2 10 ^3/uL (0-1.3); Neutrophils # (auto) 2.2 10 ^3/uL (1.6-8.6); Nucleated Red Blood Cells % 0.1 %; Platelet Count (auto) 58 10^3/uL (140-450)
[2020-01-13 12:18] LABS: Basophils % (auto) 1.1 % (0.0-2.0); Hematocrit 33.4 % (36.0-46.0); Lymphocytes # (auto) 0.7 10 ^3/uL (0.4-5.4); Lymphocytes % (auto) 20.1 % (10.0-50.0); Mean Corpuscular Hemoglobin 31.1 pg (28.0-32.0); Mean Corpuscular Hgb Conc. 34.1 g/dL (32.0-36.0); Monocytes % (auto) 5.7 % (0.0-12.0); Neutrophils % (auto) 67.8 % (37.0-80.0); Red Blood Cells 3.66 10^6/uL (4.0-5.20); White Blood Cell 3.3 10^3/uL (4.4-10.8)
[2020-01-13 12:30] LABS: INR 1.22 (0.9-1.15); Partial Thromboplastin Time 27.3 sec (23.64-32.05)
[2020-01-13 13:26] LABS: Albumin 2.8 g/dL (3.4-5.0); Calcium 8.3 mg/dL (8.5-10.1); Potassium 3.6 mmol/L (3.5-5.1)
[2020-01-13 13:31] LABS: BUN/Creatinine Ratio 10.3; Bilirubin, Total 0.8 mg/dL (0.2-1.0); Total Protein 7.2 g/dL (6.4-8.2)
[2020-01-13 13:40] LABS: Free T4 (Free Thyroxine) 0.47 ng/dL (0.89-1.76)
[2020-01-13 13:41] LABS: Folate (Folic Acid) 11.22 ng/mL (5.38-24)
== END | disposition home or self-care (01) ==
LOC: LAB 11:31
PROVIDERS: ATTEND Internal Medicine
DX: E03.9 Hypothyroidism, unspecified (principal); G20 Parkinson's disease; I48.91 Unspecified atrial fibrillation; Z79.899 Other long term (current) drug therapy
CPT/HCPCS: 36415; 80053; 80061; 82306; 82746; 84439; 84443; 85025; 85610; 85730

== ENCOUNTER → 2020-02-15 | Outpatient (CLI) | payer MEDICARE ==
[2020-02-15 17:29] LABS: Basophils # (auto) 0 10 ^3/uL (0-0.2); Basophils % (auto) 0.9 % (0.0-2.0); Eosinophils # (auto) 0.1 10 ^3/uL (0-0.8); Eosinophils % (auto) 2.3 % (0.0-7.0); Hematocrit 34.1 % (36.0-46.0); Hemoglobin 11.6 g/dL (12.2-16.2); Lymphocytes # (auto) 0.7 10 ^3/uL (0.4-5.4); Lymphocytes % (auto) 21.1 % (10.0-50.0); Mean Corpuscular Hemoglobin 30.4 pg (28.0-32.0); Mean Corpuscular Hgb Conc. 33.8 g/dL (32.0-36.0); Mean Corpuscular Volume 89.8 fL (80.0-100.0); Monocytes # (auto) 0.2 10 ^3/uL (0-1.3); Monocytes % (auto) 6.9 % (0.0-12.0); Neutrophils # (auto) 2.4 10 ^3/uL (1.6-8.6); Neutrophils % (auto) 68.8 % (37.0-80.0); Platelet Count (auto) 65 10^3/uL (140-450); Red Cell Distribution Width 15.5 % (11.8-14.3); White Blood Cell 3.5 10^3/uL (4.4-10.8)
[2020-02-15 17:38] LABS: Albumin 3.4 g/dL (3.4-5.0); BUN/Creatinine Ratio 26.7; Potassium 3.7 mmol/L (3.5-5.1)
[2020-02-15 17:43] LABS: Bilirubin, Total 0.8 mg/dL (0.2-1.0); Total Protein 7.8 g/dL (6.4-8.2)
[2020-02-15 17:46] LABS: Free T4 (Free Thyroxine) 1.72 ng/dL (0.89-1.76)
[2020-02-15 17:47] LABS: Folate (Folic Acid) 13.45 ng/mL (5.38-24)
== END | disposition home or self-care (01) ==
LOC: LAB 17:02
PROVIDERS: ATTEND Internal Medicine
DX: E03.9 Hypothyroidism, unspecified (principal); G20 Parkinson's disease; Z79.899 Other long term (current) drug therapy
CPT/HCPCS: 36415; 80053; 80061; 82306; 82607; 82746; 84439; 84443; 85025

== ENCOUNTER 2020-03-23 21:57 | Emergency (ER) | payer MEDICARE ==
[~2020-03-23] VITALS: Ht 154.9 cm; Wt 68.0 kg
[2020-03-23 23:03] LABS: Basophils # (auto) 0 10 ^3/uL (0-0.2); Lymphocytes # (auto) 0.7 10 ^3/uL (0.4-5.4); Monocytes # (auto) 0.3 10 ^3/uL (0-1.3); Neutrophils # (auto) 1.8 10 ^3/uL (1.6-8.6); Red Cell Distribution Width 15.4 % (11.8-14.3); White Blood Cell 2.9 10^3/uL (4.4-10.8)
[2020-03-23 23:05] LABS: Basophils % (auto) 0.8 % (0.0-2.0); Eosinophils # (auto) 0 10 ^3/uL (0-0.8); Eosinophils % (auto) 1.7 % (0.0-7.0); Hematocrit 28.9 % (36.0-46.0); Hemoglobin 10.1 g/dL (12.2-16.2); Lymphocytes % (auto) 24.8 % (10.0-50.0); Mean Corpuscular Hemoglobin 31.6 pg (28.0-32.0); Mean Corpuscular Hgb Conc. 35.1 g/dL (32.0-36.0); Mean Corpuscular Volume 89.8 fL (80.0-100.0); Monocytes % (auto) 10.4 % (0.0-12.0); Neutrophils % (auto) 62.3 % (37.0-80.0); Platelet Count (auto) 61 10^3/uL (140-450); Red Blood Cells 3.21 10^6/uL (4.0-5.20)
[2020-03-23 23:17] LABS: INR 1.13 (0.9-1.15); Partial Thromboplastin Time 26.8 sec (23.0-31.2)
[2020-03-23 23:22] LABS: Potassium 3.4 mmol/L (3.5-5.1)
[2020-03-23 23:26] LABS: Albumin 2.7 g/dL (3.4-5.0); BUN/Creatinine Ratio 22.7; Calcium 8.3 mg/dL (8.5-10.1)
[2020-03-23 23:31] LABS: Bilirubin, Total 0.7 mg/dL (0.2-1.0); Total Protein 6.9 g/dL (6.4-8.2)
[2020-03-24 01:49] LABS: Urine Bacteria MOD /hpf (None Seen); Urine Blood Negative /uL (Negative); Urine Hyaline Cast FEW /lpf (0 - 2); Urine Specific Gravity 1.011 (1.001-1.035); Urine WBC 11 /hpf (0 - 5)
[2020-03-24] MEDS ORDERED: ONDANSETRON HCL 4 MG/2 ML VIAL IV ONE (02:15)
[2020-03-24] MEDS ORDERED: MORPHINE SULFATE 4 MG/ML SYR/VIAL IV ONE (02:15)
[2020-03-24] MEDS ORDERED: cefTRIAXone 1GM/50ML D5W 50 ML IV ONE (02:45)
[2020-03-24 05:00] VITALS: BP 131/53
== END 2020-03-24 05:35 | disposition home or self-care (01) ==
LOC: ER 22:06
DX: L03.115 Cellulitis of right lower limb (principal); J45.909 Unspecified asthma, uncomplicated; I10 Essential (primary) hypertension; Z90.49 Acquired absence of other specified parts of digestive tract; Z98.51 Tubal ligation status; Z90.710 Acquired absence of both cervix and uterus
CPT/HCPCS: 36415; 71045; 80053; 81001; 83880; 84484; 85025; 85610; 85730; 93005; 96365; 96375; 99285; J0696; J2270; J2405

== ENCOUNTER 2020-03-26 11:33 | Inpatient (IN) | payer MEDICARE ==
[~2020-03-26] VITALS: Ht 152.4 cm; Wt 81.1 kg
[2020-03-26 13:17] LABS: Eosinophils # (auto) 0.1 10 ^3/uL (0-0.8); Hemoglobin 10.6 g/dL (12.2-16.2); Lymphocytes # (auto) 0.7 10 ^3/uL (0.4-5.4); Mean Corpuscular Hemoglobin 31.1 pg (28.0-32.0); Mean Corpuscular Hgb Conc. 34.3 g/dL (32.0-36.0); Mean Corpuscular Volume 90.8 fL (80.0-100.0); Monocytes # (auto) 0.3 10 ^3/uL (0-1.3); Red Blood Cells 3.41 10^6/uL (4.0-5.20); White Blood Cell 3.1 10^3/uL (4.4-10.8)
[2020-03-26 13:19] LABS: Basophils # (auto) 0.1 10 ^3/uL (0-0.2); Basophils % (auto) 1.7 % (0.0-2.0); Eosinophils % (auto) 3.1 % (0.0-7.0); Lymphocytes % (auto) 22.1 % (10.0-50.0); Monocytes % (auto) 9.5 % (0.0-12.0); Neutrophils % (auto) 63.6 % (37.0-80.0); Nucleated Red Blood Cells % 0.2 %; Platelet Count (auto) 64 10^3/uL (140-450); Red Cell Distribution Width 15.6 % (11.8-14.3)
[2020-03-26 13:32] LABS: INR 1.08 (0.9-1.15); Partial Thromboplastin Time 26.8 sec (23.0-31.2)
[2020-03-26 13:39] LABS: Albumin 3.1 g/dL (3.4-5.0); Calcium 8.7 mg/dL (8.5-10.1); Potassium 3.4 mmol/L (3.5-5.1)
[2020-03-26 13:40] LABS: Magnesium 2.4 mg/dL (1.6-2.6)
[2020-03-26 13:42] LABS: Total Protein 7.5 g/dL (6.4-8.2)
[2020-03-26] MEDS ORDERED: FUROSEMIDE 40 MG/4 ML VIAL IV ONE (14:15)
[2020-03-26] MEDS ORDERED: CLINDAMYCIN 300MG IV 50 ML IV ONE (14:15)
[2020-03-26 14:27] LABS: Urine Bacteria NONE SEEN /hpf (None Seen); Urine Blood Negative /uL (Negative); Urine Specific Gravity 1.006 (1.001-1.035); Urine WBC <1 /hpf (0 - 5)
[2020-03-26] MEDS ORDERED: LACTULOSE 20Gm/30ML SOLN PO PRN (14:30)
[2020-03-26] MEDS ORDERED: POTASSIUM EFFERVESENT TAB 25 MEQ PO ONE (14:30)
[2020-03-26] MEDS ORDERED: NITROGLYCERIN 0.4 MG SL TAB SL PRN (14:30)
[2020-03-26] MEDS ORDERED: MORPHINE SULF INJ 2 MG/ML SYRINGE 1ML IV PRN (14:30)
[2020-03-26] MEDS ORDERED: levoFLOXacin 500MG 100 ML IV ONE (14:30)
[2020-03-26] MEDS ORDERED: ACETAMINOPHEN 500 MG TAB PO PRN (14:30)
[2020-03-26] MEDS ORDERED: ALBUTEROL SULF 2.5 MG/0.5ML(0.5%) NEB SOLN NEB PRN (14:30)
--- NOTE | 2020-03-26 15:48 | NUR ---
[facility] to Tele[facility] unit after SBAR received. Patient oriented to Jessica roy RN, unit, room, bed, and unit policies regarding patient care and visiting hours. Patient now on continuous telemetry monitoring, tele box # 37 and telemetry reading on arrival to unit is sinus rhythm. Patient weighed by bedscale and encouraged to call if they need something. All questions and concerns addressed, patient verbalized understanding.
[2020-03-26 16:03] VITALS: BP 105/76
[2020-03-26] MEDS ORDERED: FER325T PO (16:29)
[2020-03-26] MEDS ORDERED: POTA10TA51 PO (16:29)
[2020-03-26] MEDS: FAMOTIDINE 20 MG TAB PO SCH (16:29)
[2020-03-26] MEDS ORDERED: PRIM50TA5 PO (16:29)
[2020-03-26] MEDS ORDERED: CEPH500C PO (16:30)
[2020-03-26] MEDS ORDERED: CLIN300C8 PO (16:30)
[2020-03-26 16:44] VITALS: BP 119/58
[2020-03-26] MEDS: ALBUTEROL SULF 2.5 MG/0.5ML(0.5%) NEB SOLN NEB SCH (18:27)
[2020-03-26] MEDS: IPRATROPIUM BROM 0.5 MG/2.5ML INH SOL NEB SCH (18:27)
--- NOTE | 2020-03-26 18:30 | NUR ---
AT BEDSIDE FOR MED NADER WALTON.
[2020-03-26] MEDS: traMADol HCL 50 MG TAB PO PRN (20:02)
--- NOTE | 2020-03-26 22:26 | NUR ---
PAGED HOSPITALIST PATIENT REQUESTING PRIMIDONE 50MG THAT SHE TAKES AT HOME. PER PATIENT "IT HELPS STOP MY SHAKINESS." AWAITING CALL BACK. WILL CONTINUE TO MONITOR Q1 AND PRN.
[2020-03-26 22:27] VITALS: BP 126/57
[2020-03-27] MEDS ORDERED: PRIMIDONE 50 MG TAB PO ONE (00:15)
--- NOTE | 2020-03-27 00:16 | NUR ---
CALL BACK FROM HOSPITALIST NEW ORDER RECEIVED. WILL CONTINUE TO MONITOR PATIENT Q1 AND PRN.
--- NOTE | 2020-03-27 01:20 | NUR ---
IV insertion IV access obtained, via clean sterile technique by inserting 22 gauge catheter at left forearm after 1 attempt. IV secured properly. No trauma to site. Patient tolerated procedure well. IV removal IV on right hand DC'd with sterile technique, catheter fully intact. Pressure dressing applied to site. Patient tolerated procedure well.
[2020-03-27 05:42] VITALS: BP 91/52
[2020-03-27 05:47] LABS: Basophils # (auto) 0 10 ^3/uL (0-0.2); Basophils % (auto) 1.1 % (0.0-2.0); Eosinophils # (auto) 0.1 10 ^3/uL (0-0.8); Eosinophils % (auto) 2.4 % (0.0-7.0); Hematocrit 28.1 % (36.0-46.0); Hemoglobin 9.9 g/dL (12.2-16.2); Lymphocytes # (auto) 0.7 10 ^3/uL (0.4-5.4); Lymphocytes % (auto) 24.2 % (10.0-50.0); Mean Corpuscular Hemoglobin 31.8 pg (28.0-32.0); Mean Corpuscular Hgb Conc. 35.2 g/dL (32.0-36.0); Mean Corpuscular Volume 90.3 fL (80.0-100.0); Monocytes # (auto) 0.3 10 ^3/uL (0-1.3); Monocytes % (auto) 9.3 % (0.0-12.0); Neutrophils # (auto) 1.8 10 ^3/uL (1.6-8.6); Nucleated Red Blood Cells % 0.2 %; Platelet Count (auto) 57 10^3/uL (140-450); Red Blood Cells 3.11 10^6/uL (4.0-5.20); Red Cell Distribution Width 15.6 % (11.8-14.3); White Blood Cell 2.9 10^3/uL (4.4-10.8)
[2020-03-27] MEDS: IPRATROPIUM BROM 0.5 MG/2.5ML INH SOL NEB SCH ×5 (06:31→23:52)
[2020-03-27] MEDS: ALBUTEROL SULF 2.5 MG/0.5ML(0.5%) NEB SOLN NEB SCH ×5 (06:31→23:52)
--- NOTE | 2020-03-27 07:10 | NUR ---
End of Shift Note Endorsed care to dayshift RN. At this time patient has no s/s of distress or SOB.
[2020-03-27] MEDS: FAMOTIDINE 20 MG TAB PO SCH (08:14)
[2020-03-27] MEDS: levoFLOXacin 500MG 100 ML IV SCH (08:14)
[2020-03-27 08:56] VITALS: BP 105/56
--- NOTE | 2020-03-27 11:50 | NUR ---
pt. refused mn. tx. at this time. Pt. wanted to continue to talk on the phone with her sister. No tx. given at this time, no resp. distress or sob noted, will see pt. next scheduled time.
--- NOTE | 2020-03-27 12:00 | NUR ---
ROUNDS DR Reny LAMAS AT BEDSIDE
--- NOTE | 2020-03-27 12:25 | NUR ---
OOB TO CHAIR PATIENT REQUESTED TO SIT IN CHAIR FOR LUNCH. TRANSFERRED WITH STANDBY ASSIST. PATIENT TOLERATED WELL. WILL CONTINUE TO MONITOR
[2020-03-27 13:00] VITALS: BP 108/58
[2020-03-27] MEDS: traMADol HCL 50 MG TAB PO PRN (15:54)
--- NOTE | 2020-03-27 16:30 | NUR ---
ENDORSED CARE ENDORSED CARE TO MAGDALENE GARRISON. PATIENT TRANSPORTED TO ROOM 284B, WITH ALL PERSONAL BELONGINGS. NO S/S OF DISTRESS, SOB, PAIN.
--- NOTE | 2020-03-27 16:30 | NUR ---
PATIENT ARRIVED TO [facility] PATIENT ALERT AND ORIENTED X4 ORIENTED PATIENT TO UNIT STAFF AND POC PATIENT VERBALIZED UNDERSTANDING. PATIENT DENIES ALL PAIN SOB AND DISTRESS. BED IN LOWEST LOCKED POSITION CALL LIGHT WITHIN REACH WILL CONTINUE TO MONITOR
[2020-03-27 17:00] VITALS: BP 103/57
[2020-03-27 18:33] VITALS: BP 115/58
--- NOTE | 2020-03-27 19:35 | NUR ---
Opening Shift Note Assumed care of patient, awake and alert. Fall and safety precautions in place. Call light within reach and able to use. No S/S of distress/SOB/pain. Instructed on POC and to call for assist PRN, patient verbalized understanding and in agreement. Will continue to monitor for changes Q1hr and PRN.
[2020-03-27 22:00] VITALS: BP 125/72
--- NOTE | 2020-03-27 22:02 | NUR ---
ON-CALL HOSP PAGED PATIENT REQUESTING TO TAKE HER HOME MED PRIMIDONE. ON-CALL HOSP PAGED. AWAITING CALL BACK. WILL CONTINUE TO MONITOR.
[2020-03-27] MEDS: PROMETHAZINE HCL 25 MG/ML 1ML IV PRN (22:19)
[2020-03-27] MEDS: MORPHINE SULF INJ 2 MG/ML SYRINGE 1ML IV PRN (22:20)
--- NOTE | 2020-03-27 22:20 | NUR ---
PAIN PATIENT COMPLAINING OF PAIN RATED 7/10 USING ADULT PAIN SCALE TO BILATERAL LOWER EXTREMITIES. DISCUSSED WITH PATIENT METHODS FOR PAIN RELIEF, PATIENT VERBALIZED UNDERSTANDING AND IN AGREEMENT WITH PRN SEVERE MEDICATION FOR PAIN MANAGEMENT. SEE EMAR FOR ADMINISTRATION. WILL CONTINUE TO MONITOR.
--- NOTE | 2020-03-27 22:50 | NUR ---
PAIN REASSESSMENT PATIENT RESTING IN BED WITH EYES CLOSED; CAMPOS KRUSE SCORE 0. WILL CONTINUE TO MONITOR.
--- NOTE | 2020-03-27 23:50 | NUR ---
ON-CALL HOSP PAGED HAVE NOT YET RECEIVED A CALL BACK FROM ON-CALL HOSP. ON-CALL HOSP PAGED AGAIN. AWAITING CALL BACK. WILL CONTINUE TO MONITOR.
--- NOTE | 2020-03-27 23:52 | NUR ---
CALL BACK FROM ON-CALL HOSP RECEIVED A CALL BACK FROM ON-CALL HOSP AT THIS TIME. UPDATED KILN STACKER ON PATIENT STATUS AND PT REQUEST. NEW ORDERS RECEIVED, READ BACK AND VERIFIED (SEE NEW ORDERS). WILL CARRY OUT. WILL CONTINUE TO MONITOR.
[2020-03-28] MEDS ORDERED: PRIMIDONE 50 MG TAB PO ONE
[2020-03-28 05:00] VITALS: BP 100/48
[2020-03-28 06:17] LABS: Basophils # (auto) 0 10 ^3/uL (0-0.2); Hemoglobin 9.8 g/dL (12.2-16.2); Lymphocytes # (auto) 0.5 10 ^3/uL (0.4-5.4); Monocytes # (auto) 0.2 10 ^3/uL (0-1.3); Monocytes % (auto) 7.5 % (0.0-12.0); White Blood Cell 2.1 10^3/uL (4.4-10.8)
[2020-03-28 06:20] LABS: Eosinophils # (auto) 0.2 10 ^3/uL (0-0.8); Hematocrit 28.1 % (36.0-46.0); Lymphocytes % (auto) 23.4 % (10.0-50.0); Mean Corpuscular Hemoglobin 31.9 pg (28.0-32.0); Mean Corpuscular Hgb Conc. 34.9 g/dL (32.0-36.0); Mean Corpuscular Volume 91.3 fL (80.0-100.0); Neutrophils # (auto) 1.2 10 ^3/uL (1.6-8.6); Neutrophils % (auto) 58.1 % (37.0-80.0); Nucleated Red Blood Cells % 0.5 %; Platelet Count (auto) 42 10^3/uL (140-450); Red Blood Cells 3.07 10^6/uL (4.0-5.20); Red Cell Distribution Width 15.8 % (11.8-14.3)
[2020-03-28] MEDS: ALBUTEROL SULF 2.5 MG/0.5ML(0.5%) NEB SOLN NEB SCH ×2 (06:24→11:48)
[2020-03-28] MEDS: IPRATROPIUM BROM 0.5 MG/2.5ML INH SOL NEB SCH ×2 (06:24→11:47)
[2020-03-28 06:28] LABS: INR 1.09 (0.9-1.15)
[2020-03-28 06:43] LABS: Calcium 8.5 mg/dL (8.5-10.1); Magnesium 2.6 mg/dL (1.6-2.6); Potassium 3.9 mmol/L (3.5-5.1)
[2020-03-28 06:45] LABS: BUN/Creatinine Ratio 16.8
[2020-03-28 08:00] VITALS: BP_SYST 105; BP_SYST 91; BP_DIAS 49; BP_DIAS 76
[2020-03-28] MEDS: levoFLOXacin 500MG 100 ML IV SCH (09:00)
[2020-03-28] MEDS: FAMOTIDINE 20 MG TAB PO SCH (09:01)
[2020-03-28] MEDS: MORPHINE SULF INJ 2 MG/ML SYRINGE 1ML IV PRN ×2 (09:10→22:11)
--- NOTE | 2020-03-28 10:03 | NUR ---
LOW BP PATIENT ALERT AND ORIENTED DENIES ALL DIZZYNESS SOB AND DISTRESS. MD NOTIFIED AND INFORMED OF PATIENT BP.
--- NOTE | 2020-03-28 10:03 | NUR ---
MD AT BEDSIDE PATIENT ALERT AND ORIENTED 4. MD EDUCATED PATIENT ON POC PATIENT VERBALIZED UNDERSTANDING WILL CONTINUE TO MONITOR
[2020-03-28 12:53] VITALS: BP 89/56
--- NOTE | 2020-03-28 19:50 | NUR ---
Opening Shift Note Assumed care of patient, awake and alert. No S/S of distress/SOB or pain noted. Instructed on POC and to call for assist PRN. Bed is in lowest locked position with bed rails up x2 and call light is within reach. Bed alarm is armed.
[2020-03-28] MEDS: traMADol HCL 50 MG TAB PO PRN (20:34)
[2020-03-28] MEDS: PRIMIDONE 50 MG TAB PO SCH (21:48)
[2020-03-28 22:00] VITALS: BP 94/45
[2020-03-28 22:10] VITALS: BP 104/56
[2020-03-28] MEDS: PROMETHAZINE HCL 25 MG/ML 1ML IV PRN (22:11)
[2020-03-29] VITALS (7 sets, daily range): BP systolic 77–108; BP diastolic 36–61
[2020-03-29] MEDS: TEMAZEPAM 15 MG CAP PO PRN (00:42)
[2020-03-29] MEDS: IPRATROPIUM BROM 0.5 MG/2.5ML INH SOL NEB SCH ×4 (01:01→18:27)
[2020-03-29] MEDS: ALBUTEROL SULF 2.5 MG/0.5ML(0.5%) NEB SOLN NEB SCH ×4 (01:01→18:27)
[2020-03-29] MEDS: traMADol HCL 50 MG TAB PO PRN ×2 (05:49→16:43)
--- NOTE | 2020-03-29 08:42 | NUR ---
Opening Shift Note Assumed care of patient, awake and alert. No S/S of distress/SOB or lucy. Instructed on POC and to call for assist PRN, will continue to monitor for changes Q1hr and PRN. Addendum: 03/29/20 at 1843 by TYRESE CARDOZO RN RN Note intended for 0745. Respirations are even and non labored. Pain reported 01/31. Assisted patient with re-positioning for comfort. Bed is in the lowest/locked position with side rails up x 2 and call light within reach.
--- NOTE | 2020-03-29 10:19 | NUR ---
Dr. Daniels at bedside New orders received, MD aware of patients low blood pressure.
[2020-03-29] MEDS ORDERED: ALBUMIN 25% 100 ML IV ONE (10:30)
--- NOTE | 2020-03-29 10:32 | NUR ---
IV insertion IV access obtained, via clean sterile technique by inserting 22 gauge catheter at right forearm after 1 attempt. IV secured properly. No trauma to site. Patient tolerated well.
[2020-03-29] MEDS: levoFLOXacin 500MG 100 ML IV SCH (10:38)
[2020-03-29] MEDS: FAMOTIDINE 20 MG TAB PO SCH (10:38)
--- NOTE | 2020-03-29 12:21 | NUR ---
Nutrition Assessment Est energy needs 7171-5935 kcal (20-25 kcal/kg BW 74kg) Est protein needs 45-59g (1-1.3g/kg IBW 45kg) Will reassess prn. Addendum: 03/29/20 at [address] Amended: Links added.
[2020-03-29] MEDS ORDERED: SODIUM CHLORIDE 0.9% 1,000 ML IV ONE (16:00)
--- NOTE | 2020-03-29 19:45 | NUR ---
Opening Shift Note Assumed care of patient, awake and alert. No S/S of distress/SOB noted. Instructed on POC and to call for assist PRN. Bed is in lowest locked position with bed rails up x2 and call light is within reach. Bed alarm is armed.
[2020-03-29] MEDS: PRIMIDONE 50 MG TAB PO SCH (21:21)
[2020-03-30] VITALS (10 sets, daily range): BP systolic 101–121; BP diastolic 52–66
[2020-03-30] MEDS: ALBUTEROL SULF 2.5 MG/0.5ML(0.5%) NEB SOLN NEB SCH ×4 (00:32→19:24)
[2020-03-30] MEDS: IPRATROPIUM BROM 0.5 MG/2.5ML INH SOL NEB SCH ×4 (00:32→19:24)
[2020-03-30] MEDS: MORPHINE SULF INJ 2 MG/ML SYRINGE 1ML IV PRN ×2 (01:27→14:49)
[2020-03-30 06:13] LABS: Basophils # (auto) 0 10 ^3/uL (0-0.2); Basophils % (auto) 0.9 % (0.0-2.0); Eosinophils # (auto) 0.1 10 ^3/uL (0-0.8); Hemoglobin 9.6 g/dL (12.2-16.2); Lymphocytes # (auto) 0.4 10 ^3/uL (0.4-5.4); Monocytes # (auto) 0.2 10 ^3/uL (0-1.3); Neutrophils # (auto) 1.4 10 ^3/uL (1.6-8.6)
[2020-03-30 06:14] LABS: Eosinophils % (auto) 3.5 % (0.0-7.0); Hematocrit 27.9 % (36.0-46.0); Lymphocytes % (auto) 17.6 % (10.0-50.0); Mean Corpuscular Hgb Conc. 34.6 g/dL (32.0-36.0); Mean Corpuscular Volume 92.5 fL (80.0-100.0); Monocytes % (auto) 8.5 % (0.0-12.0); Neutrophils % (auto) 69.5 % (37.0-80.0); Platelet Count (auto) 37 10^3/uL (140-450); Red Blood Cells 3.01 10^6/uL (4.0-5.20); Red Cell Distribution Width 15.7 % (11.8-14.3)
[2020-03-30 06:51] LABS: Albumin 2.8 g/dL (3.4-5.0); BUN/Creatinine Ratio 18.5; Bilirubin, Total 0.6 mg/dL (0.2-1.0); Calcium 8.3 mg/dL (8.5-10.1); Magnesium 2.7 mg/dL (1.6-2.6); Total Protein 6.5 g/dL (6.4-8.2)
--- NOTE | 2020-03-30 07:35 | NUR ---
Opening Shift Note Assumed care of patient from noc shift, awake, A/O x4. No S/S of distress/SOB, denies pain at this time. Instructed on POC and to call for assist PRN. Bed is in lowest locked position with bed rails up x2 and call light is within reach. Bed alarm on for safety.
--- NOTE | 2020-03-30 08:38 | NUR ---
Dr. Daniels at bedside, discussed plan of care with patient. New order: discontinued alarcon, stop IV fluids, give 1 unit of platelet, and reconsult Dr. Felix for neuro. will carry out orders.
[2020-03-30] MEDS: FAMOTIDINE 20 MG TAB PO SCH (09:31)
[2020-03-30] MEDS: levoFLOXacin 500MG 100 ML IV SCH (09:31)
--- NOTE | 2020-03-30 11:29 | NUR ---
Pt is an alert and oriented female that resides with her step daughter, Harleen, in step daughters home. Per pt, she and her came relocated from [place] last April to [place]. Her spouse passed in October 2019 and she moved in with her Step daughter about 3 months ago. Pt states she ambulates independently but has 2 FWW and a BSC in the home. Pt was on service with [employer] and requests that service resumes upon discharge. Pt states her step daughter will provide transportation when discharge. Fostered communication by actively listening to verbalizations of loss ,encouraged the continued use of art and crafts for grief therapy and provided emotional support. Will continue to monitor and provide intervention as needed. Addendum: 03/30/20 at 1138 by GAVIN ONTIVEROS Amended: Links added.
--- NOTE | 2020-03-30 12:00 | NUR ---
Platelet transfusion started per MD's order starting rate at 60mls/hr VS: 98.3 / 89/ 19/ 94 % room air/ BP 109/54 will monitor for any reaction in 15 mins
--- NOTE | 2020-03-30 12:15 | NUR ---
SECOND vitals signs: TEMP. 98.7/HR 90/ RESP. 18/ O2 95% ROOM AIR/ BP 108/66 NO ADVERSE REACTION REPORTED OR NOTED. WILL CONTINUE TO MONITOR FOR CHANGES.
--- NOTE | 2020-03-30 14:15 | NUR ---
END OF TRANSFUSION NO ADVERSE REACTION REPORTED OR NOTED. PLATELET COMPLETELY INFUSED AT ADJUSTED RATE OF 100MLS/HR VS: TEMP. 98.7/ HR 90/ RESP. 18/ 93%/ BP:121/52 WILL CONTINUE TO MONITOR FOR CHANGES.
--- NOTE | 2020-03-30 15:05 | NUR ---
PEDRO CATHETER DISCONTINUED PER MD'S ORDER DURING AM ROUNDS. BEDSIDE COMMODE AVAILABLE
--- NOTE | 2020-03-30 19:30 | NUR ---
Opening Shift Note Assumed care of patient, awake and alert. No S/S of distress/SOB or pain. Patient verbalized she has voided already after alarcon catheter was discontinued. Instructed on POC and to call for assist PRN, will continue to monitor for changes Q1hr and PRN.
[2020-03-30] MEDS: PRIMIDONE 50 MG TAB PO SCH (22:14)
[2020-03-30] MEDS: TEMAZEPAM 15 MG CAP PO PRN (22:18)
[2020-03-30] MEDS ORDERED: PRIMIDONE 50 MG TAB PO SCH (22:45)
[2020-03-31] VITALS (7 sets, daily range): BP systolic 112–134; BP diastolic 54–75
[2020-03-31] MEDS: ALBUTEROL SULF 2.5 MG/0.5ML(0.5%) NEB SOLN NEB SCH ×3 (00:28→11:37)
[2020-03-31] MEDS: IPRATROPIUM BROM 0.5 MG/2.5ML INH SOL NEB SCH ×3 (00:28→11:37)
[2020-03-31 05:52] LABS: Basophils # (auto) 0 10 ^3/uL (0-0.2); Basophils % (auto) 0.8 % (0.0-2.0); Eosinophils # (auto) 0.1 10 ^3/uL (0-0.8); Eosinophils % (auto) 3.5 % (0.0-7.0); Hematocrit 27.6 % (36.0-46.0); Hemoglobin 9.5 g/dL (12.2-16.2); Lymphocytes # (auto) 0.3 10 ^3/uL (0.4-5.4); Lymphocytes % (auto) 13.3 % (10.0-50.0); Mean Corpuscular Hemoglobin 31.9 pg (28.0-32.0); Mean Corpuscular Hgb Conc. 34.5 g/dL (32.0-36.0); Mean Corpuscular Volume 92.5 fL (80.0-100.0); Monocytes # (auto) 0.2 10 ^3/uL (0-1.3); Monocytes % (auto) 7.3 % (0.0-12.0); Neutrophils % (auto) 75.1 % (37.0-80.0); Platelet Count (auto) 39 10^3/uL (140-450); Red Blood Cells 2.98 10^6/uL (4.0-5.20); Red Cell Distribution Width 16.3 % (11.8-14.3); White Blood Cell 2.6 10^3/uL (4.4-10.8)
[2020-03-31] MEDS: traMADol HCL 50 MG TAB PO PRN ×2 (06:13→14:33)
--- NOTE | 2020-03-31 07:29 | NUR ---
Patient assisted to bedside commode to void. No untoward incident noted during the shift. All questions and concerns addressed, patient verbalized understanding. Patient's needs attended to. Patient has no complains at this time, no respiratory distress. Report given to oncoming RN.
--- NOTE | 2020-03-31 10:00 | NUR ---
MD AT BEDSIDE DR. VERONIKA BURNETTE TO SEE PATIENT AND MD LEFT PRESCRIPTIONS AND WILL DISCHARGE PATIENT TODAY. PATIENT IS AWARE OF SAME.
[2020-03-31] MEDS: levoFLOXacin 500MG 100 ML IV SCH (10:21)
[2020-03-31] MEDS: FAMOTIDINE 20 MG TAB PO SCH (10:21)
--- NOTE | 2020-03-31 12:30 | NUR ---
DR. AGUILAR WAS IN TO SEE PATIENT. STATED THAT PATIENT'S CELLULITIS HAS RESOLVED AND PATIENT DOES NOT NEED TO MAKE AN APPOINTMENT WITH HIM. PATIENT AWARE OF SAME.
--- NOTE | 2020-03-31 15:05 | NUR ---
D/C Planning Per social service consult to [facility]. faxed clinical information to agency. Per Emilia with [facility] they will see patient within 24hrs upon d/c day.
--- NOTE | 2020-03-31 19:10 | NUR ---
PATIENT STILL IN THE UNIT WAITING FOR HER RIDE HOME. REPORT GIVEN TO JAEL DEL CASTILLO.
--- NOTE | 2020-03-31 19:34 | NUR ---
RIDE AT HOSPITAL PT DC'D AT THIS TIME. PAPERWORK ALREADY PROVIDED. PATIENT TAKEN DOWN TO CAR.
== END 2020-03-31 19:28 | disposition home health service (06) | DRG 603 ==
LOC: ER 11:33 → TELE-CENTR 11:34 → TELE-WESTW 03-27 16:39
PROVIDERS: ADMIT Internal Medicine; ATTEND Internal Medicine
PROC: 30233R1 Transfusion of Nonautologous Platelets into Peripheral Vein, Percutaneous Approach (ICD-10-PCS; principal; 2020-03-30)
DX: L03.115 Cellulitis of right lower limb (principal); E44.0 Moderate protein-calorie malnutrition; I13.0 Hypertensive heart and chronic kidney disease with heart failure and stage 1 through stage 4 chronic kidney disease, or unspecified chronic kidney disease; D61.818 Other pancytopenia; L03.116 Cellulitis of left lower limb; D69.6 Thrombocytopenia, unspecified; E87.6 Hypokalemia; J44.9 Chronic obstructive pulmonary disease, unspecified; E03.9 Hypothyroidism, unspecified; E66.9 Obesity, unspecified; N18.9 Chronic kidney disease, unspecified; I95.9 Hypotension, unspecified; D64.9 Anemia, unspecified; I50.9 Heart failure, unspecified; G20 Parkinson's disease; Z90.49 Acquired absence of other specified parts of digestive tract; Z83.3 Family history of diabetes mellitus; Z80.1 Family history of malignant neoplasm of trachea, bronchus and lung; Z88.1 Allergy status to other antibiotic agents; Z88.5 Allergy status to narcotic agent; Z88.0 Allergy status to penicillin; Z88.2 Allergy status to sulfonamides; Z81.8 Family history of other mental and behavioral disorders; Z84.89 Family history of other specified conditions; K74.60 Unspecified cirrhosis of liver; Z68.30 Body mass index [BMI] 30.0-30.9, adult
CPT/HCPCS: 36415; 71045; 80048; 80053; 81001; 83605; 83735; 83880; 84439; 84443; 84484; 85025; 85610; 85652; 85730; 86850; 86870; 86900; 86901; 87040; 93005; 93970; 94640; 96365; 96375; G0378; J0696; J1956; J2405; J3490; P9047

== ENCOUNTER 2020-04-06 16:01 | Inpatient (IN) | payer MEDICARE ==
[~2020-04-06] VITALS: Ht 149.9 cm; Wt 72.9 kg
[~2020-04-06 16:01] MED LIST changes: +CEPH500C PO; +CLIN300C8 PO; +FER325T PO; +POTA10TA51 PO; +PRIM50TA5 PO
[2020-04-06 17:26] LABS: Basophils # (auto) 0 10 ^3/uL (0-0.2); Basophils % (auto) 0.9 % (0.0-2.0); Eosinophils # (auto) 0.1 10 ^3/uL (0-0.8); Hematocrit 31.1 % (36.0-46.0); Hemoglobin 10.9 g/dL (12.2-16.2); Lymphocytes # (auto) 0.7 10 ^3/uL (0.4-5.4); Lymphocytes % (auto) 16.3 % (10.0-50.0); Mean Corpuscular Hemoglobin 31.5 pg (28.0-32.0); Mean Corpuscular Hgb Conc. 34.9 g/dL (32.0-36.0); Mean Corpuscular Volume 90.2 fL (80.0-100.0); Monocytes # (auto) 0.3 10 ^3/uL (0-1.3); Monocytes % (auto) 6.3 % (0.0-12.0); Neutrophils # (auto) 3.3 10 ^3/uL (1.6-8.6); Neutrophils % (auto) 73.5 % (37.0-80.0); Platelet Count (auto) 105 10^3/uL (140-450); Red Blood Cells 3.44 10^6/uL (4.0-5.20); Red Cell Distribution Width 15.2 % (11.8-14.3); White Blood Cell 4.5 10^3/uL (4.4-10.8)
[2020-04-06 17:44] LABS: Albumin 3.3 g/dL (3.4-5.0); Calcium 8.4 mg/dL (8.5-10.1); Magnesium 2.5 mg/dL (1.6-2.6); Potassium 3.5 mmol/L (3.5-5.1)
[2020-04-06 17:50] LABS: BUN/Creatinine Ratio 15.4; Bilirubin, Total 0.9 mg/dL (0.2-1.0); Total Protein 7.5 g/dL (6.4-8.2)
[2020-04-06] MEDS ORDERED: FUROSEMIDE 20 MG/2 ML VIAL IV ONE (22:15)
[2020-04-06 23:05] LABS: Urine Bacteria NONE SEEN /hpf (None Seen); Urine Blood Negative /uL (Negative); Urine Hyaline Cast MOD /lpf (0 - 2); Urine Mucus FEW (None Seen); Urine Specific Gravity 1.019 (1.001-1.035); Urine WBC <1 /hpf (0 - 5)
[2020-04-07] MEDS ORDERED: DOCUSATE SOD 100 MG CAP PO PRN (02:00)
[2020-04-07] MEDS ORDERED: TEMAZEPAM 15 MG CAP PO PRN (02:00)
[2020-04-07] MEDS ORDERED: ONDANSETRON HCL 4 MG/2 ML VIAL IV PRN (02:00)
[2020-04-07 05:06] VITALS: BP 118/61
[2020-04-07] MEDS ORDERED: PNEUMOCOCCAL VACC POLYS 25 MCG/0.5 ML VIAL IM ONE (06:45)
[2020-04-07 06:56] LABS: Calcium 8.2 mg/dL (8.5-10.1); Potassium 3.1 mmol/L (3.5-5.1)
[2020-04-07 07:04] LABS: Basophils # (auto) 0 10 ^3/uL (0-0.2); Basophils % (auto) 1.2 % (0.0-2.0); Eosinophils # (auto) 0.1 10 ^3/uL (0-0.8); Lymphocytes # (auto) 0.7 10 ^3/uL (0.4-5.4); Monocytes # (auto) 0.2 10 ^3/uL (0-1.3)
[2020-04-07 07:10] LABS: Eosinophils % (auto) 6.5 % (0.0-7.0); Hematocrit 28.3 % (36.0-46.0); Mean Corpuscular Hemoglobin 31.9 pg (28.0-32.0); Mean Corpuscular Hgb Conc. 35.3 g/dL (32.0-36.0); Mean Corpuscular Volume 90.3 fL (80.0-100.0); Monocytes % (auto) 8.7 % (0.0-12.0); Neutrophils % (auto) 49.6 % (37.0-80.0); Nucleated Red Blood Cells % 0.2 %; Platelet Count (auto) 65 10^3/uL (140-450); Red Blood Cells 3.14 10^6/uL (4.0-5.20); Red Cell Distribution Width 15.3 % (11.8-14.3)
[2020-04-07 07:34] LABS: White Blood Cell 1.9 10^3/uL (4.4-10.8)
[2020-04-07 08:43] VITALS: BP 94/58
[2020-04-07 13:02] VITALS: BP 114/68
[2020-04-07] MEDS: FUROSEMIDE 20 MG TAB PO SCH (13:34)
[2020-04-07 16:30] VITALS: BP 100/60
[2020-04-07 22:00] VITALS: BP 104/51
[2020-04-08 05:00] VITALS: BP 91/54
[2020-04-08] MEDS ORDERED: LEVO150T10 PO (05:49)
[2020-04-08] MEDS ORDERED: PRIM50TA5 PO (05:50)
[2020-04-08 09:13] VITALS: BP 99/52
[2020-04-08] MEDS: FUROSEMIDE 20 MG TAB PO SCH (10:27)
[2020-04-08 17:19] VITALS: BP 99/51
[2020-04-08 21:47] VITALS: BP 103/61
[2020-04-09 05:23] VITALS: BP 105/60
[2020-04-09 09:00] VITALS: BP 111/65
[2020-04-09] MEDS: FUROSEMIDE 20 MG TAB PO SCH (09:59)
[2020-04-09 13:00] VITALS: BP 106/57
[2020-04-09 17:00] VITALS: BP 104/52
[2020-04-09] MEDS: SPIRONOLACTONE 25 MG TAB PO SCH (17:38)
[2020-04-09] MEDS: POTASSIUM CHL 10 Meq TABLET PO SCH (17:38)
[2020-04-09 21:30] VITALS: BP 98/63
[2020-04-09] MEDS: PRIMIDONE 50 MG TAB PO SCH (21:40)
[2020-04-10] MEDS: ACETAMINOPHEN 325 MG TAB PO PRN (01:00)
[2020-04-10 05:00] VITALS: BP 107/59
[2020-04-10 06:02] LABS: Basophils # (auto) 0 10 ^3/uL (0-0.2); Eosinophils # (auto) 0.2 10 ^3/uL (0-0.8); Eosinophils % (auto) 6.8 % (0.0-7.0); Hematocrit 26.8 % (36.0-46.0); Hemoglobin 9.3 g/dL (12.2-16.2); Lymphocytes # (auto) 0.7 10 ^3/uL (0.4-5.4); Mean Corpuscular Hemoglobin 31.8 pg (28.0-32.0); Mean Corpuscular Hgb Conc. 34.8 g/dL (32.0-36.0); Mean Corpuscular Volume 91.4 fL (80.0-100.0); Monocytes # (auto) 0.1 10 ^3/uL (0-1.3); Monocytes % (auto) 4.9 % (0.0-12.0); Neutrophils # (auto) 1.5 10 ^3/uL (1.6-8.6); Neutrophils % (auto) 60.3 % (37.0-80.0); Nucleated Red Blood Cells % 0.2 %; Platelet Count (auto) 64 10^3/uL (140-450); Red Blood Cells 2.93 10^6/uL (4.0-5.20); Red Cell Distribution Width 15.9 % (11.8-14.3); White Blood Cell 2.4 10^3/uL (4.4-10.8)
[2020-04-10 06:17] LABS: Albumin 2.8 g/dL (3.4-5.0); Magnesium 2.5 mg/dL (1.6-2.6); Potassium 4.3 mmol/L (3.5-5.1)
[2020-04-10 06:21] LABS: INR 1.12 (0.9-1.15); Partial Thromboplastin Time 26.6 sec (23.0-31.2)
[2020-04-10 06:22] LABS: BUN/Creatinine Ratio 27.7; Bilirubin, Total 0.7 mg/dL (0.2-1.0); Phosphorus 2.6 mg/dL (2.5-4.90); Total Protein 6.3 g/dL (6.4-8.2)
[2020-04-10] MEDS: LEVOTHYROXINE SODIUM 50 MCG TAB PO SCH (06:59)
[2020-04-10] MEDS: traMADol HCL 50 MG TAB PO PRN ×2 (07:07→21:44)
[2020-04-10 08:00] VITALS: BP 100/45
[2020-04-10 09:00] VITALS: BP 100/45
[2020-04-10] MEDS ORDERED: PRIMIDONE 50 MG TAB PO SCH ×2 (10:00→22:00)
[2020-04-10] MEDS: POTASSIUM CHL 10 Meq TABLET PO SCH (10:11)
[2020-04-10] MEDS: SPIRONOLACTONE 25 MG TAB PO SCH (10:11)
[2020-04-10] MEDS: FERROUS SULFATE 325 MG TAB PO SCH (10:11)
[2020-04-10] MEDS: FUROSEMIDE 20 MG TAB PO SCH (10:12)
[2020-04-10 12:53] VITALS: BP 108/58
[2020-04-10 17:00] VITALS: BP 135/68
[2020-04-10 20:50] VITALS: BP 113/54
[2020-04-10] MEDS: PRIMIDONE 50 MG TAB PO SCH (21:37)
[2020-04-11] VITALS (7 sets, daily range): BP systolic 95–121; BP diastolic 54–64
[2020-04-11] MEDS: ACETAMINOPHEN 325 MG TAB PO PRN (06:52)
[2020-04-11] MEDS: LEVOTHYROXINE SODIUM 50 MCG TAB PO SCH (06:52)
[2020-04-11 08:31] LABS: Basophils # (auto) 0 10 ^3/uL (0-0.2); Eosinophils # (auto) 0.2 10 ^3/uL (0-0.8); Hemoglobin 9.4 g/dL (12.2-16.2); Lymphocytes # (auto) 0.7 10 ^3/uL (0.4-5.4); Monocytes # (auto) 0.1 10 ^3/uL (0-1.3); Nucleated Red Blood Cells % 0.2 %; Platelet Count (auto) 62 10^3/uL (140-450); White Blood Cell 2.4 10^3/uL (4.4-10.8)
[2020-04-11 08:33] LABS: Basophils % (auto) 1.6 % (0.0-2.0); Eosinophils % (auto) 7.4 % (0.0-7.0); Hematocrit 27.5 % (36.0-46.0); Lymphocytes % (auto) 28.6 % (10.0-50.0); Mean Corpuscular Hemoglobin 31.5 pg (28.0-32.0); Mean Corpuscular Hgb Conc. 34.3 g/dL (32.0-36.0); Mean Corpuscular Volume 91.8 fL (80.0-100.0); Monocytes % (auto) 5.4 % (0.0-12.0); Neutrophils # (auto) 1.3 10 ^3/uL (1.6-8.6); Red Blood Cells 2.99 10^6/uL (4.0-5.20); Red Cell Distribution Width 15.5 % (11.8-14.3)
[2020-04-11 08:48] LABS: Albumin 2.8 g/dL (3.4-5.0); Calcium 8.2 mg/dL (8.5-10.1); Magnesium 2.6 mg/dL (1.6-2.6); Potassium 4.1 mmol/L (3.5-5.1)
[2020-04-11 08:52] LABS: INR 1.13 (0.9-1.15); Partial Thromboplastin Time 27.3 sec (23.0-31.2)
[2020-04-11 08:53] LABS: BUN/Creatinine Ratio 28.9; Bilirubin, Total 0.6 mg/dL (0.2-1.0); Phosphorus 3.1 mg/dL (2.5-4.90); Total Protein 6.3 g/dL (6.4-8.2)
[2020-04-11] MEDS: SPIRONOLACTONE 25 MG TAB PO SCH (09:43)
[2020-04-11] MEDS: POTASSIUM CHL 10 Meq TABLET PO SCH (09:43)
[2020-04-11] MEDS: FERROUS SULFATE 325 MG TAB PO SCH (09:43)
[2020-04-11] MEDS: FUROSEMIDE 20 MG TAB PO SCH (09:43)
[2020-04-11] MEDS: traMADol HCL 50 MG TAB PO PRN ×2 (09:44→21:26)
[2020-04-11] MEDS ORDERED: CHOLECALCIFEROL (VITD3) 2,000 UNIT CAP PO ONE (14:15)
[2020-04-11] MEDS ORDERED: ZINC SULFATE 220mg CAP or TAB PO ONE (14:15)
[2020-04-11] MEDS: PRIMIDONE 50 MG TAB PO SCH (21:26)
[2020-04-12 05:00] VITALS: BP 113/43
[2020-04-12] MEDS: LEVOTHYROXINE SODIUM 50 MCG TAB PO SCH (06:11)
[2020-04-12 08:00] VITALS: BP 114/60
[2020-04-12] MEDS ORDERED: FERROUS SULFATE 325 MG TAB PO SCH (08:00)
[2020-04-12 08:39] VITALS: BP 114/60
[2020-04-12] MEDS: FUROSEMIDE 20 MG TAB PO SCH (09:46)
[2020-04-12] MEDS: SPIRONOLACTONE 25 MG TAB PO SCH (09:46)
[2020-04-12] MEDS ORDERED: ZINC SULFATE 220mg CAP or TAB PO SCH (10:00)
[2020-04-12] MEDS ORDERED: CHOLECALCIFEROL (VITD3) 2,000 UNIT CAP PO SCH (10:00)
[2020-04-12 12:01] VITALS: BP 122/58
[2020-04-12 12:57] VITALS: BP 122/58
[2020-04-12] MEDS ORDERED: PNEUMOCOCCAL VACC POLYS 25 MCG/0.5 ML VIAL IM ONE (15:00)
[2020-04-12 17:00] VITALS: BP 103/51
== END 2020-04-12 19:55 | DRG 291 ==
LOC: ER 16:01 → OVERFLOW 16:02 → WEST WING 04-07 02:45 → TELE-EAST 04-08 13:37 → EAST 04-12 04:59
PROVIDERS: ADMIT Hospitalist; ATTEND Internal Medicine
PROC: 3E0234Z Introduction of Serum, Toxoid and Vaccine into Muscle, Percutaneous Approach (ICD-10-PCS; principal; 2020-04-07)
DX: I11.0 Hypertensive heart disease with heart failure (principal); U07.1 COVID-19; N17.0 Acute kidney failure with tubular necrosis; E44.0 Moderate protein-calorie malnutrition; I50.33 Acute on chronic diastolic (congestive) heart failure; K74.60 Unspecified cirrhosis of liver; G20 Parkinson's disease; D69.6 Thrombocytopenia, unspecified; J44.9 Chronic obstructive pulmonary disease, unspecified; E03.9 Hypothyroidism, unspecified; Z88.1 Allergy status to other antibiotic agents; Z88.5 Allergy status to narcotic agent; Z88.0 Allergy status to penicillin; Z88.2 Allergy status to sulfonamides; Z83.3 Family history of diabetes mellitus; Z90.710 Acquired absence of both cervix and uterus; Z82.49 Family history of ischemic heart disease and other diseases of the circulatory system; Z23 Encounter for immunization
CPT/HCPCS: 36415; 71046; 80048; 80053; 80061; 81001; 83735; 83880; 84100; 84484; 85025; 85610; 85730; 87081; 87426; 93005; 96374; G0378

== ENCOUNTER 2020-07-09 18:19 | Inpatient (IN) | payer MEDICARE, OTHER ==
[~2020-07-09] VITALS: Ht 154.9 cm; Wt 87.0 kg
[~2020-07-09 18:19] MED LIST changes: -ALBUAER3 IN; -CEPH500C PO; -CLIN300C8 PO; -FAMO20TA10 PO; -LACT10SO3 PO; -LEVO137T3 PO; +LEVO150T10 PO; -RIFA550T PO
[2020-07-09 19:09] LABS: Albumin 2.8 g/dL (3.4-5.0); Calcium 7.7 mg/dL (8.5-10.1); Magnesium 2.3 mg/dL (1.6-2.6); Potassium 3.7 mmol/L (3.5-5.1)
[2020-07-09 19:12] LABS: Basophils # (auto) 0 10 ^3/uL (0-0.2); Basophils % (auto) 1.3 % (0.0-2.0); Eosinophils # (auto) 0.1 10 ^3/uL (0-0.8); Eosinophils % (auto) 4.2 % (0.0-7.0); Hematocrit 29.6 % (36.0-46.0); Hemoglobin 10.2 g/dL (12.2-16.2); Lymphocytes # (auto) 0.5 10 ^3/uL (0.4-5.4); Lymphocytes % (auto) 20.3 % (10.0-50.0); Mean Corpuscular Hemoglobin 29.9 pg (28.0-32.0); Mean Corpuscular Hgb Conc. 34.4 g/dL (32.0-36.0); Mean Corpuscular Volume 86.8 fL (80.0-100.0); Monocytes # (auto) 0.1 10 ^3/uL (0-1.3); Monocytes % (auto) 5.5 % (0.0-12.0); Neutrophils # (auto) 1.7 10 ^3/uL (1.6-8.6); Neutrophils % (auto) 68.7 % (37.0-80.0); Platelet Count (auto) 74 10^3/uL (140-450); Red Blood Cells 3.41 10^6/uL (4.0-5.20); Red Cell Distribution Width 15.6 % (11.8-14.3); White Blood Cell 2.4 10^3/uL (4.4-10.8)
[2020-07-09 19:15] LABS: BUN/Creatinine Ratio 11.3; Bilirubin, Total 0.8 mg/dL (0.2-1.0); Total Protein 7.4 g/dL (6.4-8.2)
[2020-07-09 19:33] LABS: INR 1.12 (0.9-1.15); Partial Thromboplastin Time 26.7 sec (23.0-31.2)
[2020-07-09] MEDS ORDERED: DOCUSATE SOD 100 MG CAP PO PRN (22:30)
[2020-07-09] MEDS ORDERED: IBUPROFEN 100MG/5ML ORAL SUSP 100 MG/5 ML UD GT PRN (22:30)
[2020-07-09] MEDS ORDERED: MORPHINE SULF INJ 2 MG/ML SYRINGE 1ML IV PRN (22:30)
[2020-07-09] MEDS ORDERED: NITROGLYCERIN 0.4 MG SL TAB SL PRN (22:30)
[2020-07-09] MEDS ORDERED: ONDANSETRON HCL 4 MG/2 ML VIAL IV PRN (22:30)
[2020-07-09] MEDS: SOD CHL 0.45% 1,000 ML IV SCH (22:45)
[2020-07-10 06:08] LABS: Basophils # (auto) 0 10 ^3/uL (0-0.2); Eosinophils # (auto) 0.1 10 ^3/uL (0-0.8); Lymphocytes # (auto) 0.5 10 ^3/uL (0.4-5.4); Monocytes # (auto) 0.1 10 ^3/uL (0-1.3); White Blood Cell 2.1 10^3/uL (4.4-10.8)
[2020-07-10 06:10] LABS: Basophils % (auto) 1.1 % (0.0-2.0); Eosinophils % (auto) 4.7 % (0.0-7.0); Hematocrit 25.8 % (36.0-46.0); Mean Corpuscular Hemoglobin 30.4 pg (28.0-32.0); Mean Corpuscular Hgb Conc. 34.8 g/dL (32.0-36.0); Mean Corpuscular Volume 87.3 fL (80.0-100.0); Monocytes % (auto) 6.5 % (0.0-12.0); Neutrophils # (auto) 1.4 10 ^3/uL (1.6-8.6); Neutrophils % (auto) 64.7 % (37.0-80.0); Nucleated Red Blood Cells % 0.3 %; Platelet Count (auto) 58 10^3/uL (140-450); Red Blood Cells 2.96 10^6/uL (4.0-5.20)
[2020-07-10 06:33] LABS: Potassium 3.6 mmol/L (3.5-5.1)
[2020-07-10 06:41] LABS: Albumin 2.6 g/dL (3.4-5.0); BUN/Creatinine Ratio 14.1; Bilirubin, Total 0.7 mg/dL (0.2-1.0); Calcium 7.8 mg/dL (8.5-10.1); Total Protein 6.5 g/dL (6.4-8.2)
[2020-07-10] MEDS: LEVOTHYROXINE SODIUM 100 MCG/5 ML INJ IV SCH (08:30)
[2020-07-10] MEDS: FERROUS SULFATE 300 MG/5 ML ORAL LIQ PO SCH ×3 (08:30→21:02)
[2020-07-10] MEDS ORDERED: GASTROGRAFIN 120 ML SOL ONE (09:25)
[2020-07-10] MEDS: ASCORBIC ACID 500 MG TAB PO SCH ×2 (10:11→21:02)
[2020-07-10] MEDS: SPIRONOLACTONE 25 MG TAB PO SCH (10:11)
[2020-07-10] MEDS: MULTIPLE VITAMIN TAB PO SCH (10:11)
[2020-07-10] MEDS: ZINC SULFATE 220mg CAP or TAB PO SCH (10:11)
[2020-07-10] MEDS: FAMOTIDINE (10MG/ML) 2ML VL IV SCH ×2 (10:11→21:02)
[2020-07-10] MEDS ORDERED: traMADol HCL 50 MG TAB PO PRN (14:15)
[2020-07-10] MEDS: SOD CHL 0.45% 1,000 ML IV SCH (19:10)
[2020-07-11 06:23] LABS: Basophils # (auto) 0 10 ^3/uL (0-0.2); Basophils % (auto) 1.1 % (0.0-2.0); Eosinophils # (auto) 0.1 10 ^3/uL (0-0.8); Eosinophils % (auto) 4.1 % (0.0-7.0); Hematocrit 24.3 % (36.0-46.0); Hemoglobin 8.4 g/dL (12.2-16.2); Lymphocytes # (auto) 0.5 10 ^3/uL (0.4-5.4); Lymphocytes % (auto) 23.9 % (10.0-50.0); Mean Corpuscular Hgb Conc. 34.5 g/dL (32.0-36.0); Mean Corpuscular Volume 86.9 fL (80.0-100.0); Monocytes # (auto) 0.1 10 ^3/uL (0-1.3); Monocytes % (auto) 6.1 % (0.0-12.0); Neutrophils # (auto) 1.3 10 ^3/uL (1.6-8.6); Neutrophils % (auto) 64.8 % (37.0-80.0); Nucleated Red Blood Cells % 0.2 %; Platelet Count (auto) 56 10^3/uL (140-450); Red Cell Distribution Width 15.6 % (11.8-14.3)
[2020-07-11 06:29] LABS: Potassium 3.6 mmol/L (3.5-5.1)
[2020-07-11 07:06] LABS: Albumin 2.5 g/dL (3.4-5.0); BUN/Creatinine Ratio 14.3; Bilirubin, Total 0.7 mg/dL (0.2-1.0); Calcium 7.5 mg/dL (8.5-10.1); Total Protein 6.2 g/dL (6.4-8.2)
[2020-07-11] MEDS: MULTIPLE VITAMIN TAB PO SCH (10:57)
[2020-07-11] MEDS: SPIRONOLACTONE 25 MG TAB PO SCH (10:57)
[2020-07-11] MEDS: FAMOTIDINE (10MG/ML) 2ML VL IV SCH ×2 (10:57→22:41)
[2020-07-11] MEDS: LEVOTHYROXINE SODIUM 100 MCG/5 ML INJ IV SCH (10:57)
[2020-07-11] MEDS: ZINC SULFATE 220mg CAP or TAB PO SCH (10:57)
[2020-07-11] MEDS: ASCORBIC ACID 500 MG TAB PO SCH ×2 (10:57→22:41)
[2020-07-11] MEDS: FERROUS SULFATE 300 MG/5 ML ORAL LIQ PO SCH ×3 (11:00→22:41)
[2020-07-11] MEDS: SOD CHL 0.45% 1,000 ML IV SCH (14:48)
[2020-07-11 18:30] VITALS: BP 136/75
[2020-07-11 22:00] VITALS: BP 149/77
[2020-07-12 05:00] VITALS: BP 121/61
[2020-07-12] MEDS: LEVOTHYROXINE SODIUM 100 MCG/5 ML INJ IV SCH (05:52)
[2020-07-12] MEDS: FERROUS SULFATE 300 MG/5 ML ORAL LIQ PO SCH ×3 (05:52→23:08)
[2020-07-12 08:00] VITALS: BP 140/78
[2020-07-12 10:12] LABS: Basophils # (auto) 0 10 ^3/uL (0-0.2); Eosinophils # (auto) 0.1 10 ^3/uL (0-0.8); Hemoglobin 8.9 g/dL (12.2-16.2); Mean Corpuscular Volume 87.1 fL (80.0-100.0); Monocytes # (auto) 0.1 10 ^3/uL (0-1.3); Neutrophils # (auto) 1.2 10 ^3/uL (1.6-8.6); Neutrophils % (auto) 63.2 % (37.0-80.0)
[2020-07-12 10:15] LABS: Basophils % (auto) 1.5 % (0.0-2.0); Eosinophils % (auto) 4.9 % (0.0-7.0); Hematocrit 25.5 % (36.0-46.0); Lymphocytes # (auto) 0.5 10 ^3/uL (0.4-5.4); Lymphocytes % (auto) 24.8 % (10.0-50.0); Mean Corpuscular Hemoglobin 30.5 pg (28.0-32.0); Monocytes % (auto) 5.6 % (0.0-12.0); Nucleated Red Blood Cells % 0.1 %; Platelet Count (auto) 54 10^3/uL (140-450); Red Blood Cells 2.93 10^6/uL (4.0-5.20); Red Cell Distribution Width 16.1 % (11.8-14.3)
[2020-07-12] MEDS: FAMOTIDINE (10MG/ML) 2ML VL IV SCH (10:16)
[2020-07-12] MEDS: ZINC SULFATE 220mg CAP or TAB PO SCH (10:16)
[2020-07-12] MEDS: SPIRONOLACTONE 25 MG TAB PO SCH ×2 (10:17→23:08)
[2020-07-12] MEDS: ASCORBIC ACID 500 MG TAB PO SCH ×2 (10:17→23:09)
[2020-07-12] MEDS: MULTIPLE VITAMIN TAB PO SCH (10:17)
[2020-07-12 10:34] LABS: Albumin 2.6 g/dL (3.4-5.0); Calcium 7.7 mg/dL (8.5-10.1); Potassium 3.7 mmol/L (3.5-5.1)
[2020-07-12 10:37] LABS: BUN/Creatinine Ratio 8.3; Bilirubin, Total 0.6 mg/dL (0.2-1.0); Total Protein 6.7 g/dL (6.4-8.2)
[2020-07-12 10:44] LABS: White Blood Cell 1.9 10^3/uL (4.4-10.8)
[2020-07-12] MEDS ORDERED: FUROSEMIDE 40 MG TAB PO ONE (10:45)
[2020-07-12 16:00] VITALS: BP 129/70
[2020-07-12 16:49] LABS: Urine Bacteria NONE SEEN /hpf (None Seen); Urine Blood Negative /uL (Negative); Urine Hyaline Cast FEW /lpf (0 - 2); Urine Specific Gravity 1.008 (1.001-1.035); Urine WBC 2 /hpf (0 - 5)
[2020-07-12 22:00] VITALS: BP 115/58
[2020-07-12] MEDS ORDERED: PRIMIDONE 50 MG TAB PO SCH (22:00)
[2020-07-12] MEDS: FAMOTIDINE 20 MG TAB PO SCH (23:09)
[2020-07-13 05:00] VITALS: BP 126/77
[2020-07-13] MEDS: FERROUS SULFATE 300 MG/5 ML ORAL LIQ PO SCH ×2 (06:09→14:00)
[2020-07-13] MEDS ORDERED: LEVOTHYROXINE SODIUM 50 MCG TAB PO SCH (07:00)
[2020-07-13 08:28] VITALS: BP 128/80
[2020-07-13] MEDS: MULTIPLE VITAMIN TAB PO SCH (10:00)
[2020-07-13] MEDS: ASCORBIC ACID 500 MG TAB PO SCH (10:00)
[2020-07-13] MEDS ORDERED: FUROSEMIDE 40 MG TAB PO SCH (10:00)
[2020-07-13] MEDS: FAMOTIDINE 20 MG TAB PO SCH (10:00)
[2020-07-13] MEDS: SPIRONOLACTONE 25 MG TAB PO SCH (10:00)
[2020-07-13 16:20] VITALS: BP 125/64
== END 2020-07-13 18:35 | disposition home or self-care (01) | DRG 433 ==
LOC: ER 18:21 → TELE 18:22 → TELE-CENTR 07-11 18:00
PROVIDERS: ADMIT Nurse Practitioner Family; ATTEND Internal Medicine
PROC: 0W9G3ZZ Drainage of Peritoneal Cavity, Percutaneous Approach (ICD-10-PCS; principal; 2020-07-11)
DX: K74.69 Other cirrhosis of liver (principal); D61.818 Other pancytopenia; R18.8 Other ascites; E44.0 Moderate protein-calorie malnutrition; K56.609 Unspecified intestinal obstruction, unspecified as to partial versus complete obstruction; K40.90 Unilateral inguinal hernia, without obstruction or gangrene, not specified as recurrent; D63.8 Anemia in other chronic diseases classified elsewhere; E03.9 Hypothyroidism, unspecified; E88.09 Other disorders of plasma-protein metabolism, not elsewhere classified; F41.9 Anxiety disorder, unspecified; F31.9 Bipolar disorder, unspecified; E66.9 Obesity, unspecified; J44.9 Chronic obstructive pulmonary disease, unspecified; D73.1 Hypersplenism; Z20.822 Contact with and (suspected) exposure to COVID-19; Z88.5 Allergy status to narcotic agent; Z88.8 Allergy status to other drugs, medicaments and biological substances; Z88.0 Allergy status to penicillin; Z88.6 Allergy status to analgesic agent; Z88.2 Allergy status to sulfonamides; Z68.36 Body mass index [BMI] 36.0-36.9, adult; Z80.1 Family history of malignant neoplasm of trachea, bronchus and lung; Z82.49 Family history of ischemic heart disease and other diseases of the circulatory system; Z83.3 Family history of diabetes mellitus; Z91.19 Patient's noncompliance with other medical treatment and regimen; Z98.84 Bariatric surgery status; Z90.710 Acquired absence of both cervix and uterus; Z90.49 Acquired absence of other specified parts of digestive tract; Z98.51 Tubal ligation status; I11.0 Hypertensive heart disease with heart failure; Z86.16 Personal history of COVID-19; I50.9 Heart failure, unspecified
CPT/HCPCS: 10022; 36415; 71046; 74176; 74250; 76700; 76942; 80053; 81001; 82150; 83615; 83690; 83735; 83880; 83986; 84443; 84484; 85025; 85048; 85610; 85730; 86850; 86870; 86900; 86901; 87205; 89051; 93005; G0378; J3490